=== PATIENT | female | born 1955 | race Caucasian/White ===

== ENCOUNTER 2017-10-23 11:46 | Emergency (ER) | payer MEDICARE ==
[~2017-10-23] VITALS: Ht 152.4 cm; Wt 142.9 kg
[~2017-10-23 11:46] MED LIST: ALBU3IS INH; ALBU90OI61 INH; ALPR.5 PO; AMLO5 PO; ATOR10 PO; ATOR20 PO; Ambien10 MG PO; FLUO10 PO; LEVOXYL PO; LEVSOD100 PO; LEVSOD50 PO; LEVSOD75 PO; Levaquin500 MG PO; NORVASC PO; Norco 5-325 Ta1 EACH PO; OMEP20ER; OMEP20ER PO; PRED10 PO; PROM25 PO; PROZAC PO; Prednisone20 MG PO; VITAMIN D32000 UNIT PO; Vitamin D2000 UNIT PO; ZOLP10 PO; Zofran8 MG PO
[2017-10-23 17:00] LABS: Calcium, Ionized (POC) 1.03 mmol/L (1.10-1.46); Chloride (POC) 103 mmol/L (98-108); Creatinine (POC) 1.1 mg/dL (0.6-1.0); Glucose (ISTAT POC) 85 mg/dL (70-99); Hemoglobin (POC) 13.6 g/dL (12.0-16.0); Potassium (POC) 3.8 mmol/L (3.5-5.5); Sodium (POC) 140 mmol/L (135-148); Total CO2 (POC) 26 mmol/L (21-32)
[2017-10-23] MEDS ORDERED: Percocet 5-3251 EACH PO (17:30)
[2017-10-23] MEDS ORDERED: IBUP600 PO (17:30)
== END 2017-10-23 17:45 | disposition home or self-care (01) ==
LOC: ER 11:46
PROVIDERS: Emergency Medicine
DX: M43.16 Spondylolisthesis, lumbar region (principal); E66.9 Obesity, unspecified; I10 Essential (primary) hypertension; F32.9 Major depressive disorder, single episode, unspecified; Z88.0 Allergy status to penicillin; Z79.899 Other long term (current) drug therapy; Z87.891 Personal history of nicotine dependence; Z68.44 Body mass index [BMI] 60.0-69.9, adult
CPT/HCPCS: 36415; 72100; 80047; 85014; 96372; 99283; J1885

== ENCOUNTER 2017-11-23 12:50 | Inpatient (IN) | payer MEDICARE ==
[~2017-11-23] VITALS: Ht 152.4 cm; Wt 146.9 kg
[~2017-11-23 12:50] MED LIST changes: +IBUP600 PO; +Percocet 5-3251 EACH PO
[2017-11-23] MEDS ORDERED: PANT40 PO (13:14)
[2017-11-23] MEDS ORDERED: Prozac20 MG PO (13:14)
[2017-11-23] MEDS ORDERED: LEVSOD50 PO (13:14)
[2017-11-23 13:53] LABS: BASOPHILS ABSOLUTE AUTO 0.02 K/mm3 (0.00-0.23); BASOPHILS PERCENT AUTO 0 % (0-2); EOSINOPHILS ABSOLUTE AUTO 0.05 K/mm3 (0.00-0.68); EOSINOPHILS PERCENT AUTO 1 % (0-6); Hematocrit 44.5 % (33.0-51.0); Hemoglobin 15.1 g/dL (11.5-16.0); IMMATURE GRAN ABSOLUTE AUTO 0.02 K/mm3 (0.00-0.10); IMMATURE GRAN PERCENT AUTO 0 % (0-1); LYMPHOCYTES ABSOLUTE AUTO 2.88 K/mm3 (0.84-5.20); LYMPHOCYTES PERCENT AUTO 38 % (21-46); MONOCYTES ABSOLUTE AUTO 0.51 K/mm3 (0.16-1.47); MONOCYTES PERCENT AUTO 7 % (4-13); Mean Corpuscular HGB 29.8 pg (26.0-34.0); Mean Corpuscular HGB Conc 33.9 g/dL (31.5-36.5); Mean Corpuscular Volume 88 fL (80-100); Mean Platelet Volume 11.5 fL (9.1-12.4); NEUTROPHILS ABSOLUTE AUTO 4.07 K/mm3 (1.96-9.15); NEUTROPHILS PERCENT AUTO 54 % (41-73); Platelet Count 387 K/mm3 (150-400); RDW Coefficient Variation 13.2 % (11.7-14.2); RDW Standard Deviation 42.4 fL (35.1-46.3); Red Blood Cell Count 5.06 M/mm3 (3.80-5.20); White Blood Cell Count 7.55 K/mm3 (4.00-11.30)
[2017-11-23 14:05] LABS: Alanine Aminotransfer (ALT/SGP 56 U/L (12-78); Albumin, Blood 3.7 g/dL (3.4-5.0); Albumin/Globulin Ratio 0.9 (0.8-1.8); Alk Phos 124 U/L (50-136); Anion Gap 11 mmol/L (6-16); Aspartate Aminotrans (AST/SGOT 48 U/L (12-37); Blood Urea Nitrogen 8 mg/dL (8-24); Bun/Creatinine Ratio 9.7 (12.0-20.0); CO2, Blood 22 mmol/L (21-32); Calcium, Blood 9.2 mg/dL (8.5-10.1); Chloride, Blood 107 mmol/L (98-108); Creatinine, Blood 0.83 mg/dL (0.40-1.00); Globulin, Blood 3.9 g/dL (2.2-4.0); Glomerular Filtration Rate >60 (60-); Glucose, Blood 156 mg/dL (70-99); Potassium, Blood 3.5 mmol/L (3.5-5.5); Sodium, Blood 140 mmol/L (136-145); Total Protein, Blood 7.6 g/dL (6.4-8.2)
[2017-11-23 17:49] LABS: U Amphetamine Screen Not Detected; U Barbituate Screen Not Detected; U Benzodiazapine Screen DETECTED; U Buprenorphine Screen Not Detected; U Cannabinoids Screen Not Detected; U Cocaine Screen Not Detected; U Methadone Screen Not Detected; U Methamphetamine Screen Not Detected; U Opiates Screen DETECTED; U Oxycodone Screen Not Detected; U Phencyclidine Screen Not Detected; U Propoxyphene Screen Not Detected
[2017-11-23 18:48] LABS: Salicylate 1.8 mg/dL (2.8-20.0)
[2017-11-23 19:14] LABS: Acetaminophen, Random <2.0 ug/mL (10.0-30.0)
[2017-11-23 19:21] LABS: Source, Urine Clean Catch
[2017-11-23 19:25] LABS: Appearance, Urine Clear (Clear); Bilirubin, Urine Neg (Neg); Blood, Urine Neg (Neg); Color, Urine Yellow (P-Yellow); Glucose Qualitative, Urine Neg (Neg); Ketones, Urine 2+ (Neg); Leukocyte Esterase, Urine Neg (Neg); Nitrite, Urine Neg (Neg); Protein, Urine Neg (Neg); Urobilinogen, Urine NORM (Normal)
[2017-11-24 03:49] LABS: BASOPHILS ABSOLUTE AUTO 0.02 K/mm3 (0.00-0.23); BASOPHILS PERCENT AUTO 0 % (0-2); EOSINOPHILS ABSOLUTE AUTO 0.03 K/mm3 (0.00-0.68); EOSINOPHILS PERCENT AUTO 1 % (0-6); Hemoglobin 12.5 g/dL (11.5-16.0); IMMATURE GRAN PERCENT AUTO 0 % (0-1); LYMPHOCYTES ABSOLUTE AUTO 2.41 K/mm3 (0.84-5.20); LYMPHOCYTES PERCENT AUTO 44 % (21-46); MONOCYTES ABSOLUTE AUTO 0.46 K/mm3 (0.16-1.47); MONOCYTES PERCENT AUTO 8 % (4-13); Mean Corpuscular HGB 29.9 pg (26.0-34.0); Mean Corpuscular HGB Conc 32.9 g/dL (31.5-36.5); NEUTROPHILS ABSOLUTE AUTO 2.62 K/mm3 (1.96-9.15); NEUTROPHILS PERCENT AUTO 47 % (41-73); Platelet Count 239 K/mm3 (150-400); RDW Coefficient Variation 13.3 % (11.7-14.2); RDW Standard Deviation 44.6 fL (35.1-46.3); Red Blood Cell Count 4.18 M/mm3 (3.80-5.20); White Blood Cell Count 5.54 K/mm3 (4.00-11.30)
[2017-11-24 03:51] LABS: Mean Corpuscular Volume 91 fL (80-100)
[2017-11-24 04:08] LABS: Alanine Aminotransfer (ALT/SGP 44 U/L (12-78); Albumin, Blood 2.8 g/dL (3.4-5.0); Albumin/Globulin Ratio 0.9 (0.8-1.8); Alk Phos 93 U/L (50-136); Anion Gap 5 mmol/L (6-16); Aspartate Aminotrans (AST/SGOT 34 U/L (12-37); Bilirubin, Total 0.9 mg/dL (0.1-1.0); Blood Urea Nitrogen 7 mg/dL (8-24); Bun/Creatinine Ratio 8.1 (12.0-20.0); CO2, Blood 27 mmol/L (21-32); Calcium, Blood 7.9 mg/dL (8.5-10.1); Chloride, Blood 112 mmol/L (98-108); Creatinine, Blood 0.86 mg/dL (0.40-1.00); Glomerular Filtration Rate >60 (60-); Glucose, Blood 83 mg/dL (70-99); Potassium, Blood 3.2 mmol/L (3.5-5.5); Sodium, Blood 144 mmol/L (136-145); Total Protein, Blood 5.8 g/dL (6.4-8.2)
[2017-11-25] MEDS ORDERED: ALPR.25 PO (12:01)
== END 2017-11-25 12:07 | disposition home or self-care (01) | DRG 896 ==
LOC: ER 12:50 → ICUW 17:33 → MEDS 18:00 → ICUW 18:07 → MEDS 11-24 14:45
PROVIDERS: Emergency Medicine; Family Medicine
DX: F13.231 Sedative, hypnotic or anxiolytic dependence with withdrawal delirium (principal); G92 Toxic encephalopathy; F33.9 Major depressive disorder, recurrent, unspecified; Z68.43 Body mass index [BMI] 50.0-59.9, adult; F41.1 Generalized anxiety disorder; E03.9 Hypothyroidism, unspecified; E66.01 Morbid (severe) obesity due to excess calories; I10 Essential (primary) hypertension; G47.33 Obstructive sleep apnea (adult) (pediatric); Z87.891 Personal history of nicotine dependence; Z88.0 Allergy status to penicillin; Z79.899 Other long term (current) drug therapy
CPT/HCPCS: 36415; 70450; 71046; 80053; 81003; 82947; 84436; 84443; 85025; 93005; 93010; 94762; 96361; 96374; 96375; 96376; 97162; 97166; 97530; 97535; 99285; G0480; G8978; G8979; G8987; G8988; J1200; J1650; J2060; J2405; J2765; J7030

== ENCOUNTER 2018-03-01 14:22 | Observation (INO) | payer MEDICARE ==
[~2018-03-01] VITALS: Ht 152.4 cm; Wt 128.2 kg
[~2018-03-01 14:22] MED LIST changes: +ALPR.25 PO; +PANT40 PO; +Prozac20 MG PO
[2018-03-01 15:09] LABS: BASOPHILS ABSOLUTE AUTO 0.03 K/mm3 (0.00-0.23); BASOPHILS PERCENT AUTO 0 % (0-2); EOSINOPHILS ABSOLUTE AUTO 0.05 K/mm3 (0.00-0.68); EOSINOPHILS PERCENT AUTO 1 % (0-6); Hematocrit 43.9 % (33.0-51.0); Hemoglobin 14.5 g/dL (11.5-16.0); IMMATURE GRAN ABSOLUTE AUTO 0.02 K/mm3 (0.00-0.10); IMMATURE GRAN PERCENT AUTO 0 % (0-1); LYMPHOCYTES PERCENT AUTO 31 % (21-46); MONOCYTES ABSOLUTE AUTO 0.62 K/mm3 (0.16-1.47); MONOCYTES PERCENT AUTO 7 % (4-13); Mean Corpuscular HGB 30.3 pg (26.0-34.0); Mean Corpuscular Volume 92 fL (80-100); Mean Platelet Volume 11.2 fL (9.1-12.4); NEUTROPHILS ABSOLUTE AUTO 5.88 K/mm3 (1.96-9.15); NEUTROPHILS PERCENT AUTO 62 % (41-73); Platelet Count 290 K/mm3 (150-400); RDW Coefficient Variation 13.4 % (11.7-14.2); RDW Standard Deviation 45.8 fL (35.1-46.3); Red Blood Cell Count 4.79 M/mm3 (3.80-5.20)
[2018-03-01 15:40] LABS: Alanine Aminotransfer (ALT/SGP 56 U/L (12-78); Albumin, Blood 3.6 g/dL (3.4-5.0); Alk Phos 103 U/L (50-136); Anion Gap 11 mmol/L (6-16); Aspartate Aminotrans (AST/SGOT 87 U/L (12-37); Bilirubin, Total 0.9 mg/dL (0.1-1.0); Blood Urea Nitrogen 9 mg/dL (8-24); Bun/Creatinine Ratio 10.7 (12.0-20.0); CO2, Blood 25 mmol/L (21-32); Calcium, Blood 9.1 mg/dL (8.5-10.1); Chloride, Blood 106 mmol/L (98-108); Creatinine, Blood 0.84 mg/dL (0.40-1.00); Globulin, Blood 3.7 g/dL (2.2-4.0); Glomerular Filtration Rate >60 (60-); Glucose, Blood 92 mg/dL (70-99); Sodium, Blood 142 mmol/L (136-145); Total Protein, Blood 7.3 g/dL (6.4-8.2); Troponin I <0.015 ng/mL (0.000-0.040)
[2018-03-01] MEDS ORDERED: PRAZ1 PO (18:24)
[2018-03-01] MEDS ORDERED: ALPR.5 PO (18:24)
[2018-03-01 19:12] LABS: Free Thyroxine 1.63 ng/dL (0.70-1.60)
[2018-03-01 19:14] LABS: Thyroid Stimulating Hormone 2.76 uIU/mL (0.360-4.800)
[2018-03-02 05:50] LABS: Alanine Aminotransfer (ALT/SGP 46 U/L (12-78); Albumin, Blood 2.8 g/dL (3.4-5.0); Albumin/Globulin Ratio 0.9 (0.8-1.8); Alk Phos 80 U/L (50-136); Anion Gap 9 mmol/L (6-16); Aspartate Aminotrans (AST/SGOT 68 U/L (12-37); Bilirubin, Total 0.8 mg/dL (0.1-1.0); Blood Urea Nitrogen 9 mg/dL (8-24); Bun/Creatinine Ratio 11.4 (12.0-20.0); CO2, Blood 24 mmol/L (21-32); Calcium, Blood 8.2 mg/dL (8.5-10.1); Chloride, Blood 108 mmol/L (98-108); Creatinine, Blood 0.79 mg/dL (0.40-1.00); Globulin, Blood 3.1 g/dL (2.2-4.0); Glomerular Filtration Rate >60 (60-); Glucose, Blood 80 mg/dL (70-99); Potassium, Blood 4.1 mmol/L (3.5-5.5); Sodium, Blood 141 mmol/L (136-145); Total Protein, Blood 5.9 g/dL (6.4-8.2)
[2018-03-02 08:47] LABS: Source, Urine Clean Catch
[2018-03-02 08:54] LABS: Bilirubin, Urine Neg (Neg); Blood, Urine Neg (Neg); Glucose Qualitative, Urine Neg (Neg); Ketones, Urine 1+ (Neg); Leukocyte Esterase, Urine 1+ (Neg); Nitrite, Urine Neg (Neg); Protein, Urine Neg (Neg); Specific Gravity, Urine 1.015 (1.003-1.022); Urobilinogen, Urine NORM (Normal)
[2018-03-02 09:00] LABS: Appearance, Urine Clear (Clear); Color, Urine Amber (P-Yellow)
[2018-03-02 09:01] LABS: Bacteria Rare /hpf; Mucus Mod (0-Heavy); Red Blood Cells, Urine 0-2 /hpf (0-2); Squamous Epithelial Cells Few /hpf (Few)
[2018-03-03 05:23] LABS: BASOPHILS ABSOLUTE AUTO 0.02 K/mm3 (0.00-0.23); BASOPHILS PERCENT AUTO 0 % (0-2); EOSINOPHILS ABSOLUTE AUTO 0.06 K/mm3 (0.00-0.68); EOSINOPHILS PERCENT AUTO 1 % (0-6); Hematocrit 39.9 % (33.0-51.0); Hemoglobin 12.9 g/dL (11.5-16.0); IMMATURE GRAN PERCENT AUTO 0 % (0-1); LYMPHOCYTES ABSOLUTE AUTO 1.83 K/mm3 (0.84-5.20); LYMPHOCYTES PERCENT AUTO 35 % (21-46); MONOCYTES ABSOLUTE AUTO 0.42 K/mm3 (0.16-1.47); MONOCYTES PERCENT AUTO 8 % (4-13); Mean Corpuscular HGB 29.9 pg (26.0-34.0); Mean Corpuscular HGB Conc 32.3 g/dL (31.5-36.5); Mean Corpuscular Volume 93 fL (80-100); Mean Platelet Volume 11.6 fL (9.1-12.4); NEUTROPHILS ABSOLUTE AUTO 2.88 K/mm3 (1.96-9.15); NEUTROPHILS PERCENT AUTO 55 % (41-73); Platelet Count 213 K/mm3 (150-400); RDW Coefficient Variation 13.4 % (11.7-14.2); RDW Standard Deviation 45.9 fL (35.1-46.3); Red Blood Cell Count 4.31 M/mm3 (3.80-5.20); White Blood Cell Count 5.21 K/mm3 (4.00-11.30)
[2018-03-03 05:43] LABS: Anion Gap 7 mmol/L (6-16); Blood Urea Nitrogen 7 mg/dL (8-24); Bun/Creatinine Ratio 8.4 (12.0-20.0); CO2, Blood 26 mmol/L (21-32); Calcium, Blood 8.4 mg/dL (8.5-10.1); Chloride, Blood 109 mmol/L (98-108); Creatinine, Blood 0.83 mg/dL (0.40-1.00); Glomerular Filtration Rate >60 (60-); Glucose, Blood 89 mg/dL (70-99); Magnesium, Blood 1.8 mg/dL (1.6-2.4); Sodium, Blood 142 mmol/L (136-145)
== END 2018-03-03 16:10 | disposition home or self-care (01) ==
LOC: ER 14:22 → MEDS 14:23
PROVIDERS: Emergency Medicine; Internal Medicine; Nurse Practitioner Acute Care
DX: G93.40 Encephalopathy, unspecified (principal); F41.9 Anxiety disorder, unspecified; F32.9 Major depressive disorder, single episode, unspecified; M19.90 Unspecified osteoarthritis, unspecified site; E66.9 Obesity, unspecified; I10 Essential (primary) hypertension; E78.00 Pure hypercholesterolemia, unspecified; E03.9 Hypothyroidism, unspecified; E66.01 Morbid (severe) obesity due to excess calories; G47.33 Obstructive sleep apnea (adult) (pediatric); Z79.899 Other long term (current) drug therapy; Z88.0 Allergy status to penicillin; Z99.89 Dependence on other enabling machines and devices; Z79.01 Long term (current) use of anticoagulants; Z87.891 Personal history of nicotine dependence; Z68.43 Body mass index [BMI] 50.0-59.9, adult
CPT/HCPCS: 36415; 71046; 80048; 80053; 81001; 82550; 83735; 84439; 84443; 84484; 85025; 87086; 93005; 93010; 94660; 94762; 96372; 96374; 97116; 97162; 97166; 97530; 99285-25; G0378; G8978; G8979; G8987; G8988; J1650; J2405; J3480

== ENCOUNTER 2020-09-19 08:35 | Day surgery (SDC) | payer MEDICARE ==
[~2020-09-19 08:35] MED LIST changes: +PRAZ1 PO
--- NOTE | 2020-09-19 09:43 | NUR ---
PT ADMITTED TO [facility] FOR IVIG INFUSION. WE RECEIVED TWO DIFFERENT ORDER SETS. AFTER A FEW ATTEMPTS, I WAS ABLE TO SPEAK WITH DR. GRANT'S MA TO GET ORDERS CLARIFIED. PT TO RECEIVE LOADING DOSE OF 5 CONSECUTIVE DAYS. PT CANCELLED FOR TODAY AND TO COME BACK NEXT WEEK, THURSDAY-THURSDAY FOR INITAIL LOADING DOSE. PT VERY UNDERSTANDING OF CHANGE.
[2020-09-19] MEDS ORDERED: ASPI325 PO (09:54)
[2020-09-19] MEDS ORDERED: ATOR20 PO (09:55)
[2020-09-19] MEDS ORDERED: DULO60 PO (09:55)
[2020-09-19] MEDS ORDERED: PYRI60 PO (09:56)
[2020-09-19] MEDS ORDERED: MULTI-VITAMIN1 EAC2 PO (09:56)
[2020-09-19] MEDS ORDERED: NAPR220 PO (09:56)
== END 2020-09-19 22:38 | disposition home or self-care (01) ==
LOC: ATC 08:35
DX: G70.00 Myasthenia gravis without (acute) exacerbation (principal); Z53.8 Procedure and treatment not carried out for other reasons

== ENCOUNTER 2020-09-24 01:01 | Day surgery (SDC) | payer MEDICARE ==
[~2020-09-24 01:01] MED LIST changes: +ASPI325 PO; +DULO60 PO; +MULTI-VITAMIN1 EAC2 PO; +NAPR220 PO; +PYRI60 PO
--- NOTE | 2020-09-24 08:39 | NUR ---
PT TO OITS. PT TEARFULL TODAY. STATES SHE SUFFERS FROM DEPRESSION AND HAVING A HARD DAY. DID NOT GIVE BENADRYL THIS AM, PT STATES SHE TOOK 50MG THIS AM.
[2020-09-24 08:54] LABS: Hematocrit 46.4 % (33.0-51.0); Hemoglobin 15.2 g/dL (11.5-16.0); Mean Corpuscular HGB 29.8 pg (26.0-34.0); Mean Corpuscular HGB Conc 32.8 g/dL (31.5-36.5); Mean Corpuscular Volume 91 fL (80-100); Mean Platelet Volume 10.5 fL (9.1-12.4); Platelet Count 364 K/mm3 (150-400); RDW Coefficient Variation 11.9 % (11.7-14.2); White Blood Cell Count 7.11 K/mm3 (4.00-11.30)
[2020-09-24 09:10] LABS: Creatinine, Blood 0.94 mg/dL (0.40-1.00)
[2020-09-24 09:16] LABS: BASOPHILS PERCENT MAN 0 % (0-2); EOSINOPHILS ABSOLUTE MAN 0.07 K/mm3 (0.00-0.68); EOSINOPHILS PERCENT MAN 1 % (0-6); LYMPHOCYTES PERCENT MAN 31 % (21-46); MONOCYTES ABSOLUTE MAN 0.42 K/mm3 (0.16-1.47); MONOCYTES PERCENT MAN 6 % (4-13); SEG NEUTROPHILS PERCENT MAN 62 % (41-73); TOTAL CELLS COUNTED 100
== END 2020-09-24 11:59 | disposition home or self-care (01) ==
LOC: ATC 01:01
PROVIDERS: Student in an Organized Health Care Education/Training Program
DX: G70.00 Myasthenia gravis without (acute) exacerbation (principal); E78.5 Hyperlipidemia, unspecified; G47.33 Obstructive sleep apnea (adult) (pediatric); E66.9 Obesity, unspecified; G62.9 Polyneuropathy, unspecified; Z87.891 Personal history of nicotine dependence
CPT/HCPCS: 82565; 82784; 84520; 85007; 85027; 86880; 96365; 96366; A9270; J1100; J1568

== ENCOUNTER 2020-09-25 00:08 | Day surgery (SDC) | payer MEDICARE ==
--- NOTE | 2020-09-25 08:04 | NUR ---
PT TO OTIS. PT C/O H/A, NAUSEA, VOMITING YESTERDAY AND DRY HEAVES TODAY, BODY ACHES, AND TEMP 99.1. SHE STATES THAT THESES ARE NORMAL REACTIONS TO HER TREATMENT BUT MORE SEVER THAN NORMAL. SHE STATES SHE CALLED THE OFFICE TWICE YESTERDAY BUT NEVER GOT A RETURN CALL. THIS RN ATTEMPTED TO CALL THIS AM BUT OFFICE WAS NOT OPEN YET. WILL CALL AGAIN WHEN OPEN.
--- NOTE | 2020-09-25 08:19 | NUR ---
ATTMEPTED TO CALL OFFICE AND WAS ONLY ABLE TO LEAVE MESSAGE. AWAITING FOR CALL BACK BEFORE STARTING TODAYS DOSE. SPOKE WITH OUR PHARMACIST AND AGREES TO SPEAK WITH PHYSICAIN PRIOR TO STARTING. PT INFORMED OF THIS AND AGREES WITH PLAN.
--- NOTE | 2020-09-25 14:10 | NUR ---
PT TOLERATED INFUSION WELL. STATES SHE IS FEELING MUCH BETTER THAN SHE DID, WHEN SHE ARRIVED THIS AM.
== END 2020-09-25 14:20 | disposition home or self-care (01) ==
LOC: ATC 00:08
DX: G70.00 Myasthenia gravis without (acute) exacerbation (principal); G62.9 Polyneuropathy, unspecified; E78.5 Hyperlipidemia, unspecified; G47.33 Obstructive sleep apnea (adult) (pediatric); E03.9 Hypothyroidism, unspecified; E66.9 Obesity, unspecified
CPT/HCPCS: 96365; 96366; 96375; A9270; J1100; J1568; J7040

== ENCOUNTER 2020-09-26 00:01 | Day surgery (SDC) | payer MEDICARE ==
[~2020-09-26] VITALS: Ht 152.4 cm; Wt 141.0 kg
== END 2020-09-26 11:43 | disposition home or self-care (01) ==
LOC: ATC 00:01
DX: G70.00 Myasthenia gravis without (acute) exacerbation (principal); G62.9 Polyneuropathy, unspecified; E78.5 Hyperlipidemia, unspecified; G47.33 Obstructive sleep apnea (adult) (pediatric); E03.9 Hypothyroidism, unspecified; E66.9 Obesity, unspecified; F33.2 Major depressive disorder, recurrent severe without psychotic features; Z87.891 Personal history of nicotine dependence; Z68.43 Body mass index [BMI] 50.0-59.9, adult
CPT/HCPCS: 96365; 96366; 96375; J1100; J1568

== ENCOUNTER 2020-09-28 00:32 | Day surgery (SDC) | payer MEDICARE | END 2020-09-28 23:05 | disposition home or self-care (01) | LOC: ATC 00:32 | DX: G70.00 Myasthenia gravis without (acute) exacerbation (principal); M79.2 Neuralgia and neuritis, unspecified; F33.2 Major depressive disorder, recurrent severe without psychotic features; E78.5 Hyperlipidemia, unspecified; G47.33 Obstructive sleep apnea (adult) (pediatric); E03.9 Hypothyroidism, unspecified ==

== ENCOUNTER 2020-11-26 00:37 | Day surgery (SDC) | payer MEDICARE ==
[~2020-11-26] VITALS: Wt 140.9 kg
[2020-11-26 09:03] LABS: BASOPHILS ABSOLUTE AUTO 0.02 K/mm3 (0.00-0.23); BASOPHILS PERCENT AUTO 0 % (0-2); EOSINOPHILS ABSOLUTE AUTO 0.05 K/mm3 (0.00-0.68); EOSINOPHILS PERCENT AUTO 1 % (0-6); Hematocrit 44.1 % (33.0-51.0); Hemoglobin 14.3 g/dL (11.5-16.0); IMMATURE GRAN ABSOLUTE AUTO 0.03 K/mm3 (0.00-0.10); IMMATURE GRAN PERCENT AUTO 1 % (0-1); LYMPHOCYTES ABSOLUTE AUTO 2.08 K/mm3 (0.84-5.20); LYMPHOCYTES PERCENT AUTO 32 % (21-46); MONOCYTES ABSOLUTE AUTO 0.53 K/mm3 (0.16-1.47); MONOCYTES PERCENT AUTO 8 % (4-13); Mean Corpuscular HGB 29.9 pg (26.0-34.0); Mean Corpuscular HGB Conc 32.4 g/dL (31.5-36.5); Mean Corpuscular Volume 92 fL (80-100); Mean Platelet Volume 10.6 fL (9.1-12.4); NEUTROPHILS ABSOLUTE AUTO 3.86 K/mm3 (1.96-9.15); NEUTROPHILS PERCENT AUTO 59 % (41-73); Platelet Count 377 K/mm3 (150-400); RDW Coefficient Variation 12.5 % (11.7-14.2); RDW Standard Deviation 42.5 fL (35.1-46.3); Red Blood Cell Count 4.79 M/mm3 (3.80-5.20); White Blood Cell Count 6.57 K/mm3 (4.00-11.30)
[2020-11-26 09:21] LABS: Creatinine, Blood 0.9 mg/dL (0.40-1.00)
== END 2020-11-26 10:58 | disposition home or self-care (01) ==
LOC: ATC 00:37
PROVIDERS: Student in an Organized Health Care Education/Training Program
DX: G70.00 Myasthenia gravis without (acute) exacerbation (principal); M79.2 Neuralgia and neuritis, unspecified; F33.2 Major depressive disorder, recurrent severe without psychotic features; G47.33 Obstructive sleep apnea (adult) (pediatric); E78.5 Hyperlipidemia, unspecified; E03.9 Hypothyroidism, unspecified; Z87.891 Personal history of nicotine dependence
CPT/HCPCS: 82565; 82784; 84520; 85025; 96365; 96366; 96375; A9270; J1100; J1568

== ENCOUNTER 2020-11-27 00:38 | Day surgery (SDC) | payer MEDICARE | END 2020-11-27 15:57 | disposition home or self-care (01) | LOC: ATC 00:38 | DX: G70.00 Myasthenia gravis without (acute) exacerbation (principal); M79.2 Neuralgia and neuritis, unspecified; F33.2 Major depressive disorder, recurrent severe without psychotic features; E78.5 Hyperlipidemia, unspecified; E03.9 Hypothyroidism, unspecified; G47.30 Sleep apnea, unspecified; Z87.891 Personal history of nicotine dependence; Z79.82 Long term (current) use of aspirin; Z79.899 Other long term (current) drug therapy | CPT/HCPCS: 96365; 96366; A9270; J1100; J1568 ==

== ENCOUNTER 2020-12-24 00:23 | Day surgery (SDC) | payer MEDICARE ==
[~2020-12-24] VITALS: Ht 152.4 cm; Wt 139.8 kg
[2020-12-24 14:10] LABS: BASOPHILS ABSOLUTE AUTO 0.03 K/mm3 (0.00-0.23); BASOPHILS PERCENT AUTO 0 % (0-2); EOSINOPHILS ABSOLUTE AUTO 0.03 K/mm3 (0.00-0.68); EOSINOPHILS PERCENT AUTO 0 % (0-6); Hematocrit 43.1 % (33.0-51.0); Hemoglobin 14.3 g/dL (11.5-16.0); IMMATURE GRAN ABSOLUTE AUTO 0.01 K/mm3 (0.00-0.10); IMMATURE GRAN PERCENT AUTO 0 % (0-1); LYMPHOCYTES ABSOLUTE AUTO 1.95 K/mm3 (0.84-5.20); LYMPHOCYTES PERCENT AUTO 27 % (21-46); MONOCYTES PERCENT AUTO 8 % (4-13); Mean Corpuscular HGB 30.1 pg (26.0-34.0); Mean Corpuscular HGB Conc 33.2 g/dL (31.5-36.5); Mean Corpuscular Volume 91 fL (80-100); Mean Platelet Volume 10.5 fL (9.1-12.4); NEUTROPHILS ABSOLUTE AUTO 4.69 K/mm3 (1.96-9.15); NEUTROPHILS PERCENT AUTO 64 % (41-73); Platelet Count 326 K/mm3 (150-400); RDW Coefficient Variation 12.2 % (11.7-14.2); RDW Standard Deviation 40.8 fL (35.1-46.3); Red Blood Cell Count 4.75 M/mm3 (3.80-5.20); White Blood Cell Count 7.31 K/mm3 (4.00-11.30)
--- NOTE | 2020-12-24 14:40 | NUR ---
LABS DRAWN FROM RIGHT AC USING 23G BUTTERFLY NEEDLE PER HOSPITAL PROTOCOL
--- NOTE | 2020-12-24 16:20 | NUR ---
IV PADDED WITH 2X2S AMD WRAPPED WITH COBAN AND BANDNET. PT TO RETURN TOMORROW FOR ANOTHER DOSE OF IVIG.
== END 2020-12-24 16:11 | disposition home or self-care (01) ==
LOC: ATC 00:23
PROVIDERS: Student in an Organized Health Care Education/Training Program
DX: G70.00 Myasthenia gravis without (acute) exacerbation (principal); E03.9 Hypothyroidism, unspecified; E78.5 Hyperlipidemia, unspecified; F33.2 Major depressive disorder, recurrent severe without psychotic features; Z87.891 Personal history of nicotine dependence
CPT/HCPCS: 82784; 84520; 85025; 96365; 96366; A9270; J1100; J1568

== ENCOUNTER 2020-12-25 02:28 | Day surgery (SDC) | payer MEDICARE | END 2020-12-25 15:35 | disposition home or self-care (01) | LOC: ATC 02:28 | DX: G70.00 Myasthenia gravis without (acute) exacerbation (principal); G62.9 Polyneuropathy, unspecified; F33.2 Major depressive disorder, recurrent severe without psychotic features; E78.5 Hyperlipidemia, unspecified; G47.33 Obstructive sleep apnea (adult) (pediatric); E03.9 Hypothyroidism, unspecified | CPT/HCPCS: 96365; 96366; 96375; A9270; J1100; J1568 ==

== ENCOUNTER 2021-01-17 00:13 | Day surgery (SDC) | payer MEDICARE | END 2021-01-17 23:10 | disposition home or self-care (01) | LOC: ATC 00:13 | DX: G70.00 Myasthenia gravis without (acute) exacerbation (principal); G62.9 Polyneuropathy, unspecified; E78.5 Hyperlipidemia, unspecified; G47.33 Obstructive sleep apnea (adult) (pediatric); E66.9 Obesity, unspecified; Z99.89 Dependence on other enabling machines and devices; Z79.82 Long term (current) use of aspirin; Z87.891 Personal history of nicotine dependence | CPT/HCPCS: J1568; J7040 ==

== ENCOUNTER 2021-01-31 00:52 | Day surgery (SDC) | payer MEDICARE ==
[2021-01-31 13:53] LABS: BASOPHILS ABSOLUTE AUTO 0.03 K/mm3 (0.00-0.23); BASOPHILS PERCENT AUTO 0 % (0-2); EOSINOPHILS ABSOLUTE AUTO 0.07 K/mm3 (0.00-0.68); EOSINOPHILS PERCENT AUTO 1 % (0-6); Hematocrit 44.3 % (33.0-51.0); Hemoglobin 14.5 g/dL (11.5-16.0); IMMATURE GRAN ABSOLUTE AUTO 0.03 K/mm3 (0.00-0.10); IMMATURE GRAN PERCENT AUTO 0 % (0-1); LYMPHOCYTES ABSOLUTE AUTO 2.92 K/mm3 (0.84-5.20); LYMPHOCYTES PERCENT AUTO 36 % (21-46); MONOCYTES ABSOLUTE AUTO 0.73 K/mm3 (0.16-1.47); MONOCYTES PERCENT AUTO 9 % (4-13); Mean Corpuscular HGB 29.4 pg (26.0-34.0); Mean Corpuscular HGB Conc 32.7 g/dL (31.5-36.5); Mean Corpuscular Volume 90 fL (80-100); Mean Platelet Volume 10.8 fL (9.1-12.4); NEUTROPHILS ABSOLUTE AUTO 4.38 K/mm3 (1.96-9.15); NEUTROPHILS PERCENT AUTO 54 % (41-73); Platelet Count 332 K/mm3 (150-400); RDW Coefficient Variation 13.2 % (11.7-14.2); RDW Standard Deviation 42.9 fL (35.1-46.3); Red Blood Cell Count 4.93 M/mm3 (3.80-5.20); White Blood Cell Count 8.16 K/mm3 (4.00-11.30)
[2021-01-31 14:45] LABS: Creatinine, Blood 0.96 mg/dL (0.40-1.00)
--- NOTE | 2021-01-31 15:52 | NUR ---
DOSING: ORDER STATES TO BASE DOSE ON ACTUAL BODY WEIGHT, BUT, PER KARINE IN PHARMACY, DUE TO IVIG SHORTAGE THIS PHARMACY WILL ONLY DOSE PER IDEAL BODY WEIGHT. THIS RN SPOKE TO MIKE AT [facility] AND GAVE HER THIS INFORMATION, SHE STATES SHE WILL GIVE THIS INFO TO DR GRANT.
== END 2021-01-31 15:30 | disposition home or self-care (01) ==
LOC: ATC 00:52
PROVIDERS: Student in an Organized Health Care Education/Training Program
DX: G70.00 Myasthenia gravis without (acute) exacerbation (principal); G47.33 Obstructive sleep apnea (adult) (pediatric); E78.5 Hyperlipidemia, unspecified; E03.9 Hypothyroidism, unspecified; F33.2 Major depressive disorder, recurrent severe without psychotic features; Z87.891 Personal history of nicotine dependence
CPT/HCPCS: 82565; 82784; 84520; 85025; 96365; 96375; A9270; J1100; J1568

== ENCOUNTER 2021-02-01 01:07 | Day surgery (SDC) | payer MEDICARE | END 2021-02-01 15:34 | disposition home or self-care (01) | LOC: ATC 01:07 | DX: G70.00 Myasthenia gravis without (acute) exacerbation (principal); E78.5 Hyperlipidemia, unspecified; E03.9 Hypothyroidism, unspecified; G62.9 Polyneuropathy, unspecified; F33.2 Major depressive disorder, recurrent severe without psychotic features; E66.9 Obesity, unspecified; Z87.891 Personal history of nicotine dependence; Z68.43 Body mass index [BMI] 50.0-59.9, adult | CPT/HCPCS: A9270; J1100; J1568 ==

== ENCOUNTER 2021-02-19 04:10 | Day surgery (SDC) | payer MEDICARE ==
[~2021-02-19] VITALS: Ht 152.4 cm; Wt 139.3 kg
[2021-02-19 08:49] LABS: BASOPHILS ABSOLUTE AUTO 0.03 K/mm3 (0.00-0.23); BASOPHILS PERCENT AUTO 1 % (0-2); EOSINOPHILS ABSOLUTE AUTO 0.06 K/mm3 (0.00-0.68); EOSINOPHILS PERCENT AUTO 1 % (0-6); Hemoglobin 14.1 g/dL (11.5-16.0); IMMATURE GRAN ABSOLUTE AUTO 0.01 K/mm3 (0.00-0.10); IMMATURE GRAN PERCENT AUTO 0 % (0-1); LYMPHOCYTES ABSOLUTE AUTO 1.65 K/mm3 (0.84-5.20); LYMPHOCYTES PERCENT AUTO 36 % (21-46); MONOCYTES ABSOLUTE AUTO 0.36 K/mm3 (0.16-1.47); MONOCYTES PERCENT AUTO 8 % (4-13); Mean Corpuscular HGB 29.8 pg (26.0-34.0); Mean Corpuscular HGB Conc 32.8 g/dL (31.5-36.5); Mean Corpuscular Volume 91 fL (80-100); Mean Platelet Volume 11.3 fL (9.1-12.4); NEUTROPHILS ABSOLUTE AUTO 2.42 K/mm3 (1.96-9.15); NEUTROPHILS PERCENT AUTO 54 % (41-73); Platelet Count 261 K/mm3 (150-400); RDW Coefficient Variation 13.6 % (11.7-14.2); RDW Standard Deviation 46.1 fL (35.1-46.3); Red Blood Cell Count 4.73 M/mm3 (3.80-5.20); White Blood Cell Count 4.53 K/mm3 (4.00-11.30)
[2021-02-19 09:12] LABS: Creatinine, Blood 0.87 mg/dL (0.40-1.00)
[2021-02-19] MEDS ORDERED: GAMMAGARD S-D 110 GM IV (09:16)
== END 2021-02-19 10:05 | disposition home or self-care (01) ==
LOC: ATC 04:10
PROVIDERS: Student in an Organized Health Care Education/Training Program
DX: G70.00 Myasthenia gravis without (acute) exacerbation (principal); G47.33 Obstructive sleep apnea (adult) (pediatric)
CPT/HCPCS: 82565; 82784; 84520; 85025; 96365; A9270; J1100; J1200; J1568

== ENCOUNTER 2021-02-21 02:15 | Day surgery (SDC) | payer MEDICARE ==
[~2021-02-21 02:15] MED LIST changes: +GAMMAGARD S-D 110 GM IV
== END 2021-02-21 10:08 | disposition home or self-care (01) ==
LOC: ATC 02:15
DX: G70.00 Myasthenia gravis without (acute) exacerbation (principal); Z87.891 Personal history of nicotine dependence
CPT/HCPCS: 96365; A9270; J1100; J1568

== ENCOUNTER 2021-10-08 14:02 | Emergency (ER) | payer MEDICARE ==
[~2021-10-08] VITALS: Ht 152.4 cm; Wt 131.1 kg
[2021-10-08 14:47] LABS: Hematocrit 46.7 % (33.0-51.0)
[2021-10-08 14:57] LABS: BASOPHILS ABSOLUTE AUTO 0.02 K/mm3 (0.00-0.23); BASOPHILS PERCENT AUTO 0 % (0-2); EOSINOPHILS ABSOLUTE AUTO 0.04 K/mm3 (0.00-0.68); EOSINOPHILS PERCENT AUTO 1 % (0-6); Hemoglobin 15.5 g/dL (11.5-16.0); IMMATURE GRAN ABSOLUTE AUTO 0.04 K/mm3 (0.00-0.10); IMMATURE GRAN PERCENT AUTO 1 % (0-1); LYMPHOCYTES ABSOLUTE AUTO 1.15 K/mm3 (0.84-5.20); LYMPHOCYTES PERCENT AUTO 14 % (21-46); MONOCYTES ABSOLUTE AUTO 0.53 K/mm3 (0.16-1.47); MONOCYTES PERCENT AUTO 6 % (4-13); Mean Corpuscular HGB 29.5 pg (26.0-34.0); Mean Corpuscular HGB Conc 33.2 g/dL (31.5-36.5); Mean Corpuscular Volume 89 fL (80-100); NEUTROPHILS ABSOLUTE AUTO 6.51 K/mm3 (1.96-9.15); NEUTROPHILS PERCENT AUTO 79 % (41-73); RDW Coefficient Variation 12.5 % (11.7-14.2); RDW Standard Deviation 40.7 fL (35.1-46.3); Red Blood Cell Count 5.25 M/mm3 (3.80-5.20); White Blood Cell Count 8.29 K/mm3 (4.00-11.30)
[2021-10-08 14:58] LABS: Mean Platelet Volume 10.6 fL (9.1-12.4)
[2021-10-08 15:12] LABS: Alanine Aminotransfer (ALT/SGP 26 U/L (12-78); Albumin, Blood 3.5 g/dL (3.4-5.0); Albumin/Globulin Ratio 0.6 (0.8-1.8); Alk Phos 102 U/L (50-136); Anion Gap 6 mmol/L (6-16); Aspartate Aminotrans (AST/SGOT 23 U/L (12-37); Bilirubin, Total 0.9 mg/dL (0.1-1.0); Blood Urea Nitrogen 13 mg/dL (8-24); Bun/Creatinine Ratio 14.7 (12.0-20.0); CO2, Blood 20 mmol/L (21-32); Chloride, Blood 107 mmol/L (98-108); Creatinine, Blood 0.88 mg/dL (0.40-1.00); Globulin, Blood 5.6 g/dL (2.2-4.0); Glomerular Filtration Rate >60 (60-); Glucose, Blood 117 mg/dL (70-99); Potassium, Blood 4.1 mmol/L (3.5-5.5); Sodium, Blood 133 mmol/L (136-145); Total Protein, Blood 9.1 g/dL (6.4-8.2)
[2021-10-08 15:17] LABS: Platelet Count 193 K/mm3 (150-400)
[2021-10-08] MEDS ORDERED: Norco 5-325 Ta1 EACH PO (17:35)
== END 2021-10-08 18:28 | disposition home or self-care (01) ==
LOC: ER 14:02
PROVIDERS: Physician Assistant
DX: M79.10 Myalgia, unspecified site (principal); T50.Z15A Adverse effect of immunoglobulin, initial encounter; I10 Essential (primary) hypertension; Z79.899 Other long term (current) drug therapy; Z88.0 Allergy status to penicillin
CPT/HCPCS: 80053; 85025; 86850; 86880; 86900; 86901; 96374; 96375; 99283-25; A9270; J1885; J3010

== ENCOUNTER 2021-10-23 01:23 | Day surgery (SDC) | payer MEDICARE | END 2021-10-23 12:00 | disposition home or self-care (01) | LOC: ATC 01:23 | DX: G70.00 Myasthenia gravis without (acute) exacerbation (principal) | CPT/HCPCS: 96365; 96366; A9270; J1568 ==

== ENCOUNTER 2022-03-02 13:02 | Emergency (ER) | payer MEDICARE ==
[~2022-03-02] VITALS: Ht 152.4 cm; Wt 121.6 kg
[2022-03-02 14:40] LABS: Source, Urine Clean Catch
[2022-03-02 14:44] LABS: Appearance, Urine Hazy (Clear); Bilirubin, Urine Neg (Neg); Blood, Urine 1+ (Neg); Color, Urine Yellow (P-Yellow); Glucose Qualitative, Urine Neg (Neg); Ketones, Urine Neg (Neg); Leukocyte Esterase, Urine 3+ (Neg); Nitrite, Urine Neg (Neg); Protein, Urine 1+ (Neg); Urobilinogen, Urine NORM (Normal)
[2022-03-02] MEDS ORDERED: ONDA4ODT MM (15:10)
[2022-03-02] MEDS ORDERED: CODEINE-GUAIFE120 M1 PO (15:10)
[2022-03-02 15:14] LABS: Amorphous Light (0-Heavy); Bacteria Mod /hpf; Mucus Light (0-Heavy); Red Blood Cells, Urine 0-2 /hpf (0-2); Squamous Epithelial Cells Few /hpf (Few); White Blood Cells, Urine 0-2 /hpf (0-5)
== END 2022-03-02 15:53 | disposition home or self-care (01) ==
LOC: ER 13:02
PROVIDERS: Physician Assistant
DX: U07.1 COVID-19 (principal); I10 Essential (primary) hypertension; Z88.0 Allergy status to penicillin; Z79.82 Long term (current) use of aspirin; Z79.899 Other long term (current) drug therapy; Z87.891 Personal history of nicotine dependence
CPT/HCPCS: 36415; 81001; A9270; J2405

== ENCOUNTER → 2022-03-26 | Outpatient (CLI) | payer MEDICARE ==
[~2022-03-26] MED LIST changes: +CODEINE-GUAIFE120 M1 PO; +ONDA4ODT MM
== END | disposition home or self-care (01) ==
LOC: LAB 14:14 → LAB SHORT 14:14
DX: R05.9 Cough, unspecified (principal)
CPT/HCPCS: 87070; 87205

== ENCOUNTER 2024-04-23 14:02 | Emergency (ER) | payer MEDICARE ==
[~2024-04-23] VITALS: Ht 152.4 cm; Wt 136.1 kg
[2024-04-23] MEDS ORDERED: Ipratropium Bromide INH 0.02% 0.5 mg/2.5ML Vial INH SCH (14:15)
[2024-04-23] MEDS ORDERED: Albuterol 2.5 MG/3 ML VIAL INH SCH (14:15)
[2024-04-23 14:44] LABS: BASOPHILS ABSOLUTE AUTO 0.03 K/mm3 (0.00-0.23); BASOPHILS PERCENT AUTO 0 % (0-2); EOSINOPHILS ABSOLUTE AUTO 0.13 K/mm3 (0.00-0.68); EOSINOPHILS PERCENT AUTO 1 % (0-6); Hematocrit 44.9 % (33.0-51.0); Hemoglobin 14.3 g/dL (11.5-16.0); IMMATURE GRAN ABSOLUTE AUTO 0.05 K/mm3 (0.00-0.10); IMMATURE GRAN PERCENT AUTO 0 % (0-1); LYMPHOCYTES ABSOLUTE AUTO 0.94 K/mm3 (0.84-5.20); LYMPHOCYTES PERCENT AUTO 6 % (21-46); MONOCYTES ABSOLUTE AUTO 0.82 K/mm3 (0.16-1.47); MONOCYTES PERCENT AUTO 5 % (4-13); Mean Corpuscular HGB 29.4 pg (26.0-34.0); Mean Corpuscular HGB Conc 31.8 g/dL (31.5-36.5); Mean Corpuscular Volume 92 fL (80-100); Mean Platelet Volume 10.4 fL (9.1-12.4); NEUTROPHILS ABSOLUTE AUTO 13.55 K/mm3 (1.96-9.15); NEUTROPHILS PERCENT AUTO 87 % (41-73); Platelet Count 267 K/mm3 (150-400); RDW Standard Deviation 43.8 fL (35.1-46.3); Red Blood Cell Count 4.87 M/mm3 (3.80-5.20); White Blood Cell Count 15.52 K/mm3 (4.00-11.30)
[2024-04-23 15:00] LABS: Albumin, Blood 3.9 g/dL (3.4-5.0); Albumin/Globulin Ratio 1.2 (0.8-1.8); Bilirubin, Total 1.1 mg/dL (0.1-1.0); Bun/Creatinine Ratio 14.6 (12.0-20.0); Creatinine, Blood 0.89 mg/dL (0.40-1.00); Globulin, Blood 3.3 g/dL (2.2-4.0); Potassium, Blood 3.9 mmol/L (3.5-5.5); Total Protein, Blood 7.2 g/dL (6.4-8.2)
[2024-04-23] MEDS ORDERED: NS 1,000 ML IV ONE ×2 (15:29→16:56)
[2024-04-23] MEDS ORDERED: propofoL 100 ML IV ONE ×2 (15:29→17:50)
[2024-04-23] MEDS ORDERED: propofoL 100 ML IV SCH (15:45)
[2024-04-23] MEDS ORDERED: FentaNYL Citrate 50 MCG/ML 2 ML Injection ONE (16:40)
[2024-04-23] MEDS ORDERED: fentaNYL citrate 1,000 MCG in NS 80 ML IV SCH (16:45)
[2024-04-23] MEDS ORDERED: Ketamine HCl 100 MG / ML 5ML Vial IV ONE (17:15)
[2024-04-23] MEDS ORDERED: Ketamine HCL 1,000 MG in NS 100 ML IV SCH (17:25)
[2024-04-23 18:00] VITALS: BP 83/48
[2024-04-23] MEDS ORDERED: Naloxone HCl 0.4MG / ML 1ML Vial XX ONE (21:40)
[2024-04-23] MEDS ORDERED: Rocuronium Bromide 10 MG/ML 5ML Injection IV ONE (21:40)
[2024-04-23] MEDS ORDERED: Ketamine HCl 100 MG / ML 5ML Vial XX ONE (21:40)
[2024-04-23] MEDS ORDERED: Phenylephrine HCl 100 MCG/ML-NS 10MLSYR (1MG/10ML) IV ONE (21:40)
[2024-04-23] MEDS ORDERED: Etomidate 2MG / ML 10ML Vial XX ONE (21:40)
== END 2024-04-23 18:15 | disposition short-term general hospital (02) ==
LOC: ER 14:02
PROVIDERS: Physician Assistant
DX: R06.02 Shortness of breath (principal); Z88.0 Allergy status to penicillin; Z79.899 Other long term (current) drug therapy; Z79.82 Long term (current) use of aspirin; I10 Essential (primary) hypertension; G47.30 Sleep apnea, unspecified
CPT/HCPCS: 31500; 51702; 71045; 71046; 80053; 83880; 84484; 85025; 93005; 93010; 94002; 94644; 94664; 96365-59; 99285-25; J2310; J2371; J2704; J3010; J7030; J7060

== ENCOUNTER 2024-10-31 02:14 | Day surgery (SDC) | payer MEDICARE ==
[~2024-10-31] VITALS: Wt 156.0 kg
[2024-10-31] MEDS ORDERED: IMMUN GLOB G(IGG)/PRO/IGA 0-50 100 ML IV SCH (06:00)
[2024-10-31] MEDS ORDERED: Dexamethasone Sod Phos 10 MG/ML 1ML VIAL IV SCH (07:10)
[2024-10-31] MEDS ORDERED: DiphenhydrAMINE HCL 25 MG Cap PO PRN (07:10)
[2024-10-31] MEDS ORDERED: Acetaminophen 325 MG TABLET PO PRN (07:10)
[2024-10-31 07:33] VITALS: BP 96/70
[2024-10-31] MEDS ORDERED: Prednisone10 MG PO (07:34)
[2024-10-31 08:19] VITALS: BP 111/75
[2024-10-31 08:32] VITALS: BP 128/70
[2024-10-31 08:50] VITALS: BP 118/65
[2024-10-31 09:06] VITALS: BP 120/72
== END 2024-10-31 11:28 | disposition home or self-care (01) ==
LOC: ATC 02:14
DX: G70.00 Myasthenia gravis without (acute) exacerbation (principal); G47.33 Obstructive sleep apnea (adult) (pediatric); E66.89 Other obesity not elsewhere classified; E78.5 Hyperlipidemia, unspecified; Z99.89 Dependence on other enabling machines and devices; Z79.899 Other long term (current) drug therapy; Z88.0 Allergy status to penicillin
CPT/HCPCS: 96365; 96366; 96375; A9270; J1100; J1459

== ENCOUNTER 2024-11-14 07:41 | Day surgery (SDC) | payer MEDICARE ==
[~2024-11-14] VITALS: Wt 154.4 kg
[2024-11-14 07:41] VITALS: BP 155/91
[~2024-11-14 07:41] MED LIST changes: +Acetaminophen 325 MG TABLET PO SCH; +Dexamethasone Sod Phos 10 MG/ML 1ML VIAL IV SCH; +DiphenhydrAMINE HCL 25 MG Cap PO SCH; +IMMUN GLOB G(IGG)/PRO/IGA 0-50 100 ML IV SCH; +Prednisone10 MG PO
[2024-11-14 08:15] VITALS: BP 112/67
[2024-11-14 08:30] VITALS: BP 128/74
[2024-11-14 08:47] VITALS: BP 141/73
[2024-11-14 10:57] VITALS: BP 146/87
== END 2024-11-14 11:02 | disposition home or self-care (01) ==
LOC: ATC 07:41
DX: G70.00 Myasthenia gravis without (acute) exacerbation (principal); G64 Other disorders of peripheral nervous system; I10 Essential (primary) hypertension; J44.9 Chronic obstructive pulmonary disease, unspecified; E78.5 Hyperlipidemia, unspecified; G47.30 Sleep apnea, unspecified; Z88.0 Allergy status to penicillin; Z79.890 Hormone replacement therapy; Z79.899 Other long term (current) drug therapy
CPT/HCPCS: 96365; 96366; 96375; A9270; J1100; J1459

== ENCOUNTER 2024-11-28 05:56 | Day surgery (SDC) | payer MEDICARE ==
[~2024-11-28] VITALS: Wt 153.3 kg
[~2024-11-28 05:56] MED LIST changes: -Acetaminophen 325 MG TABLET PO SCH; -Dexamethasone Sod Phos 10 MG/ML 1ML VIAL IV SCH; -DiphenhydrAMINE HCL 25 MG Cap PO SCH; -IMMUN GLOB G(IGG)/PRO/IGA 0-50 100 ML IV SCH
[2024-11-28] MEDS ORDERED: IMMUN GLOB G(IGG)/PRO/IGA 0-50 100 ML IV SCH (06:00)
[2024-11-28] MEDS ORDERED: Acetaminophen 325 MG TABLET PO SCH (07:05)
[2024-11-28] MEDS ORDERED: Dexamethasone Sodium Phosphate 4 MG/ML 5ML VIAL IV SCH (07:05)
[2024-11-28] MEDS ORDERED: DiphenhydrAMINE HCL 25 MG Cap PO SCH (07:05)
[2024-11-28 07:25] VITALS: BP 129/92
[2024-11-28 08:12] VITALS: BP 125/78
[2024-11-28 08:27] VITALS: BP 112/71
[2024-11-28 08:45] VITALS: BP 108/82
== END 2024-11-28 11:56 | disposition home or self-care (01) ==
LOC: ATC 05:56
DX: G70.00 Myasthenia gravis without (acute) exacerbation (principal); G47.33 Obstructive sleep apnea (adult) (pediatric); E78.5 Hyperlipidemia, unspecified; I10 Essential (primary) hypertension; Z88.0 Allergy status to penicillin; Z88.8 Allergy status to other drugs, medicaments and biological substances; Z79.890 Hormone replacement therapy; Z79.899 Other long term (current) drug therapy
CPT/HCPCS: 96365; 96366; 96375; A9270; J1100; J1459

== ENCOUNTER 2024-12-19 04:04 | Day surgery (SDC) | payer MEDICARE ==
[2024-12-19] MEDS ORDERED: RITUXIMAB ABBS IV SCH (06:00)
[2024-12-19] MEDS ORDERED: NS IV SCH (06:00)
[2024-12-19] MEDS ORDERED: Acetaminophen 325 MG TABLET PO SCH (07:00)
[2024-12-19] MEDS ORDERED: MethylPREDNISolone Sod Succ 125 MG Vial IV SCH (07:00)
[2024-12-19 07:35] VITALS: BP 135/78
[2024-12-19] MEDS ORDERED: Rituxan10 MG/ML IV (07:38)
[2024-12-19 08:51] VITALS: BP 109/62
[2024-12-19 09:20] VITALS: BP 103/68
[2024-12-19 09:53] VITALS: BP 93/57
[2024-12-19 10:35] VITALS: BP 111/73
== END 2024-12-19 10:40 | disposition home or self-care (01) ==
LOC: ATC 04:04
DX: G70.00 Myasthenia gravis without (acute) exacerbation (principal); G62.9 Polyneuropathy, unspecified; G89.29 Other chronic pain; M54.50 Low back pain, unspecified; G47.33 Obstructive sleep apnea (adult) (pediatric); J44.9 Chronic obstructive pulmonary disease, unspecified; I10 Essential (primary) hypertension; E78.5 Hyperlipidemia, unspecified; E66.9 Obesity, unspecified; Z68.43 Body mass index [BMI] 50.0-59.9, adult; Z79.890 Hormone replacement therapy; Z79.899 Other long term (current) drug therapy; Z88.0 Allergy status to penicillin
CPT/HCPCS: 96365; 96366; 96375; A9270; J2919; J7050; Q5115

== ENCOUNTER 2025-02-07 07:46 | Inpatient (IN) | payer MEDICARE ==
[~2025-02-07] VITALS: Ht 152.4 cm; Wt 158.4 kg
[2025-02-07] VITALS (27 sets, daily range): BP systolic 111–212; BP diastolic 74–145
[~2025-02-07 07:46] MED LIST changes: +Rituxan10 MG/ML IV
[2025-02-07 08:40] LABS: pH Blood Venous 7.42 (7.34-7.37)
[2025-02-07 08:45] LABS: BASOPHILS ABSOLUTE AUTO 0.04 K/mm3 (0.00-0.23); BASOPHILS PERCENT AUTO 1 % (0-2); EOSINOPHILS ABSOLUTE AUTO 0.03 K/mm3 (0.00-0.68); EOSINOPHILS PERCENT AUTO 1 % (0-6); Hematocrit 43.3 % (33.0-51.0); Hemoglobin 14.3 g/dL (11.5-16.0); IMMATURE GRAN ABSOLUTE AUTO 0.04 K/mm3 (0.00-0.10); IMMATURE GRAN PERCENT AUTO 1 % (0-1); LYMPHOCYTES ABSOLUTE AUTO 2.56 K/mm3 (0.84-5.20); LYMPHOCYTES PERCENT AUTO 40 % (21-46); MONOCYTES ABSOLUTE AUTO 0.58 K/mm3 (0.16-1.47); MONOCYTES PERCENT AUTO 9 % (4-13); Mean Corpuscular HGB Conc 33.0 g/dL (31.5-36.5); Mean Corpuscular Volume 92 fL (80-100); NEUTROPHILS ABSOLUTE AUTO 3.18 K/mm3 (1.96-9.15); NEUTROPHILS PERCENT AUTO 50 % (41-73); NRBC ABSOLUTE 0.00 K/mm3 (0.00-0.02); NRBC Auto 0.0 /100 WBC (0.0-0.2); RDW Coefficient Variation 13.2 % (11.7-14.2); RDW Standard Deviation 44.8 fL (35.1-46.3)
[2025-02-07 08:53] LABS: Alanine Aminotransfer (ALT/SGP 29.0 U/L (12-78); Albumin, Blood 3.3 g/dL (3.4-5.0); Albumin/Globulin Ratio 0.8 (0.8-1.8); Anion Gap 7.0 mmol/L (3-11); Aspartate Aminotrans (AST/SGOT 28.0 U/L (12-37); Bilirubin, Total 0.8 mg/dL (0.1-1.0); Blood Urea Nitrogen 18.0 mg/dL (8-24); CO2, Blood 26.0 mmol/L (21-32); Calcium, Blood 9.2 mg/dL (8.5-10.1); Chloride, Blood 109.0 mmol/L (98-108); Creatinine, Blood 1.01 mg/dL (0.40-1.00); Globulin, Blood 4.1 g/dL (2.2-4.0); Glucose, Blood 110.0 mg/dL (70-99); Potassium, Blood 3.9 mmol/L (3.5-5.5); Sodium, Blood 138.0 mmol/L (136-145); Total Protein, Blood 7.4 g/dL (6.4-8.2)
[2025-02-07] MEDS ORDERED: IMMUN GLOB G(IGG)/PRO/IGA 0-50 100 ML IV SCH (09:00)
[2025-02-07 09:05] LABS: Platelet Count 248 K/mm3 (150-400)
[2025-02-07] MEDS ORDERED: NEOSTIGMINE IV ONE (09:05)
[2025-02-07] MEDS ORDERED: Neostigmine Methylsulfate 5MG/5ML SYR XX ONE (09:20)
[2025-02-07] MEDS ORDERED: NS 1,000 ML IV SCH (09:55)
[2025-02-07] MEDS ORDERED: NS IV SCH (10:30)
[2025-02-07] MEDS ORDERED: METHYLPREDNISOLONE SOD SUCC IV SCH (10:30)
[2025-02-07] MEDS ORDERED: K-TAB ER20 ME1 PO (12:16)
[2025-02-07] MEDS ORDERED: HydrALAZINE HCl 20 MG / ML 1ML Vial IV PRN (12:45)
[2025-02-07] MEDS ORDERED: FentaNYL Citrate 50 MCG/ML 2 ML Injection IV PRN (12:50)
--- NOTE | 2025-02-07 13:00 | NUR ---
ARRIVAL TO ICU PT ARRIVED TO ICU-12 VIA GURNEY AT 1113. PT ALERT/ORIENTED X4. SPEECH IS SOFT & STUTTERED AT TIMES, BUT PT IS ABLE TO COMMUNICATE NEEDS & HISTORY W/ STAFF. PT REPORTS PROFOUND WEAKNESS THROUGHOUT ALL EXTREMITIES, BLE > BUE. PT STATES IT IS DIFFICULT TO OPEN HER EYES. PT IS ON ROOM AIR W/ SPO2 >90%, CPAP AT BEDSIDE TO WEAR WHILE SLEEPING. HR 60-80'S, SINUS RHYTHM ON MONITOR. SBP UP TO 212; PT MEDICATED FOR SEVERE PAIN & ANXIETY PER EMAR W/ SIGNIFICANT IMPROVEMENT. AFEBRILE. PUREWICK PLACED FOR ACCURATE I&O'S DUE TO INCONTINENCE AT BASELINE. ORDERS RECEIVED FOR UA, STRAIGHT CATH COMPLETED TO OBTAIN SAMPLE. POWERGLIDE PLACED TO PRUDENCIO, NS INFUSING PER EMAR. RFA PIV INFUSING IVIG, SEE CC FLOWSHEET FOR TITRATIONS. PT SPOKE TO COUSIN/CAREGIVER, MICHAELA, W/ ASSISTANCE TO UPDATE HER ON CURRENT CONDITION. PT ORIENTED TO ROOM/UNIT/CALL LIGHT. PT RESTING IN BED W/ CPAP IN PLACE AT THIS TIME.
[2025-02-07 14:06] LABS: Source, Urine Clean Catch
[2025-02-07 14:34] LABS: Bilirubin, Urine Neg (Neg); Color, Urine Yellow (P-Yellow); Glucose Qualitative, Urine Neg (Neg); Ketones, Urine Neg (Neg); Leukocyte Esterase, Urine Neg (Neg); Protein, Urine 1+ (Neg); Specific Gravity, Urine 1.015 (1.003-1.022); Urobilinogen, Urine NORM (Normal)
--- NOTE | 2025-02-07 18:09 | NUR ---
END OF SHIFT NOTE: NO ACUTE EVENTS FOLLOWING ARRIVAL TO ICU. PT HAS SLEPT FOR MAJORITY OF THE AFTERNOON ON BIPAP / 30%. PT ON RA WHILE AWAKE W/ SPO2 >90%. RESPIRATIONS EVEN & UNLABORED. HR 60-80'S, SINUS RHYTHM ON MONITOR. BP STABLE, MAP >65. AFEBRILE. PW IN PLACE. NS INFUSING AT 75ML/HR. IVIG COMPLETED FOR TODAY PER ORDERS. NO OTHER NEEDS AT THIS TIME, CALL LIGHT IN REACH.
[2025-02-08] VITALS (21 sets, daily range): BP systolic 114–154; BP diastolic 64–121
[2025-02-08 03:39] LABS: Hematocrit 41.2 % (33.0-51.0); Hemoglobin 13.6 g/dL (11.5-16.0); Mean Corpuscular HGB Conc 33.0 g/dL (31.5-36.5); Mean Corpuscular Volume 90 fL (80-100); NRBC ABSOLUTE 0.00 K/mm3 (0.00-0.02); NRBC Auto 0.0 /100 WBC (0.0-0.2); Platelet Count 249 K/mm3 (150-400); RDW Coefficient Variation 12.9 % (11.7-14.2); RDW Standard Deviation 42.5 fL (35.1-46.3)
[2025-02-08 04:06] LABS: Alanine Aminotransfer (ALT/SGP 28.0 U/L (12-78); Albumin, Blood 3.1 g/dL (3.4-5.0); Albumin/Globulin Ratio 0.7 (0.8-1.8); Anion Gap 7.0 mmol/L (3-11); Aspartate Aminotrans (AST/SGOT 23.0 U/L (12-37); Bilirubin, Total 0.7 mg/dL (0.1-1.0); Blood Urea Nitrogen 19.0 mg/dL (8-24); CO2, Blood 25.0 mmol/L (21-32); Calcium, Blood 8.8 mg/dL (8.5-10.1); Chloride, Blood 108.0 mmol/L (98-108); Creatinine, Blood 0.94 mg/dL (0.40-1.00); Globulin, Blood 4.7 g/dL (2.2-4.0); Glucose, Blood 177.0 mg/dL (70-99); Potassium, Blood 4.4 mmol/L (3.5-5.5); Sodium, Blood 136.0 mmol/L (136-145); Total Protein, Blood 7.8 g/dL (6.4-8.2)
--- NOTE | 2025-02-08 06:33 | NUR ---
SHIFT SUMMARY: PT SLEPT AND WORE THE CPAP THROUGH MOST OF THE NIGHT. SHE HAS SAID THAT SHE IS FEELING BETTER. SHE IS SWALLOWING WELL FOR PO MEDS. SHE IS MOVING HER HEAD AND EXTREMITIES BETTER AND IS TRYING TO SIT UP. HER BREATHING APPEARS BETTER AND SHE SAID SHE FEELS SHE'S BREATHING BETTER. SHE'S BEEN IN A SINUS RHYTHM 70S-80S. BP IS STABLE, HAS NOT REQUIRED PRN BLOOD PRESSURE MEDICATION THROUGH THE NIGHT.
[2025-02-08] MEDS ORDERED: Enoxaparin 40 MG/0.4 ML SYR SC SCH (09:00)
[2025-02-08] MEDS ORDERED: DULoxetine HCL 60 MG Capsule DR PO SCH (09:00)
--- NOTE | 2025-02-08 10:38 | NUR ---
AM NOTE: THIS RN ASSUMED CARE OF PT AT APPROX 0700, BEDSIDE REPORT FROM NOC RN. PT A/OX4, SITTING UP IN BED ON HER PHONE. ABLE TO KEEP EYES OPEN. MOVING ALL EXTREMITIES, LEFT SIDE WEAKER THAN RIGHT SIDE. PARTICIPATING IN CARE, STATES SHE FEELS SIGNIFICANTLY BETTER THIS AM THAN YESTERDAY. VSS. HR 70-80'S, SINUS RHYTHM ON MONITOR. SBP 120-140'S, MAP >65. DENIES CHEST PAIN/PRESSURE. SPO2 >90% ON ROOM AIR, RESPIRATIONS EVEN & UNLABORED. AFEBRILE. PUREWICK IN PLACE FOR ACCURATE I&O W/ INCONTINENCE. TOLERATING DIET WELL, NO S/S OF ASPIRATION. NS INFUSING AT 75ML/HR. IV SOLUMEDROL & IVIG PER ORDERS. PT IS RESTING IN BED W/ BIPAP IN PLACE AT THIS TIME. CALL LIGHT IN REACH.
[2025-02-08] MEDS ORDERED: IMMUN GLOB G(IGG)/PRO/IGA 0-50 100 ML IV SCH (11:00)
--- NOTE | 2025-02-08 15:59 | NUR ---
BELONGINGS: PT'S SPOUSE & CAREGIVER/COUSIN AT BEDSIDE TO VISIT THIS AFTERNOON. WITH PT'S PERMISSION, CAREGIVER/COUSIN WILL TAKE PT'S PURSE AND ALL BELONGINGS BACK HOME WITH THEM TODAY.
--- NOTE | 2025-02-08 18:13 | NUR ---
END OF SHIFT NOTE: NO ACUTE EVENTS THIS SHIFT. NEURO WNL. VSS. HR 60-80'S, SINUS RHYTHM ON MONITOR. SBP 110-140'S, MAP >65. SPO2 >90% ON RA WHILE AWAKE, BIPAP 14/8 30% WHILE ASLEEP. AFEBRILE. PT UP TO BSC FOR BM TODAY. PW IN PLACE FOR URINARY INCONTINENCE. ASSISTED W/ REPOSITIONING NEEDED. TOLERATING PO INTAKE WELL. NO OTHER NEEDS AT THIS TIME, CALL LIGHT IN REACH.
[2025-02-08] MEDS ORDERED: LEVSOD25 PO (20:07)
[2025-02-08] MEDS ORDERED: Prozac40 MG PO (20:08)
[2025-02-08] MEDS ORDERED: PANT40 PO (20:11)
[2025-02-08] MEDS ORDERED: CALCIUM 600 +1 EA11 PO (20:12)
[2025-02-08] MEDS ORDERED: MAGNESIUM OXID500 MG (20:12)
[2025-02-08] MEDS ORDERED: Atarax10 MG PO (20:12)
[2025-02-09] VITALS: BP 135/74
[2025-02-09 02:00] VITALS: BP 118/61
[2025-02-09 04:00] VITALS: BP 135/72
--- NOTE | 2025-02-09 05:42 | NUR ---
SHIFT SUMMARY: NO SIGNIFICANT CHANGES OVERNIGHT. PTS PAIN SEEMS TO BE BETTER MANAGED AT THIS NEW YARN WRAPPER DOSING AND WITH THE Q2HR BREAKTHROUGH DOSE. HER BREATHING REMAINS UNLABORED AT REST, SOB AND SHALLOW WITH EXERTION SECONDARY TO PAIN. LUNGS ARE CLEAR. PT HAS BEEN DRINKING ADEQUATE AMOUNTS OF WATER INDEPENDENTLY, IV FLUIDS CONTINUE AT 150ML/HR. VITALS ARE WNL.
[2025-02-09] MEDS ORDERED: NS IV SCH (09:00)
[2025-02-09] MEDS ORDERED: METHYLPREDNISOLONE SOD SUCC IV SCH (09:00)
[2025-02-09] MEDS ORDERED: Ondansetron HCl 2 MG / ML 2ML Vial IV PRN (13:00)
[2025-02-09] MEDS ORDERED: Ketorolac Tromethamine 15mg Vial IV PRN (15:40)
[2025-02-09 15:48] VITALS: BP 139/99
--- NOTE | 2025-02-09 15:59 | NUR ---
Transfer. Pt transferred to PCU room 11. Report given to CODE ENFORCEMENT SUPERVISOR assuming care. Pt alert and oriented at time of transfer, VS stable. All personal belongings sent with patient to new room. Spouse updated on new room number.
--- NOTE | 2025-02-09 17:53 | NUR ---
End of Shift Pt brought to PCU-11 by bed from ICU-12 at approx 1545. Ceiling lift used to transfer pt from ICU bed to PCU bed. Pt A&O x4, but keeping eyes closed while communicating w/ staff. Pt then later only opening R eye. Pt w/ full body shivering upon arrival w/ pt reporting "it's the medication that's been making me do this." Warm blanket provided & pt no longer shivering/shaking. Pt reporting not responding well to IVIG infusions. IVIG infusing @ 25 ml/hr. Pt c/o pain in "head, neck & shoulders." Pt medicated w/ PRN IV toradol per emar. Pt reporting significant improvement w/ medication. Pt then opening both eyes, sitting upright in bed, fully alert, reporting "I feel much better." Pt denying pain / discomfort.
[2025-02-09 20:19] VITALS: BP 139/81
[2025-02-10] VITALS (8 sets, daily range): BP systolic 117–174; BP diastolic 62–95
[2025-02-10 05:05] LABS: Anion Gap 6.0 mmol/L (3-11); Blood Urea Nitrogen 26.0 mg/dL (8-24); CO2, Blood 27.0 mmol/L (21-32); Calcium, Blood 8.5 mg/dL (8.5-10.1); Chloride, Blood 106.0 mmol/L (98-108); Creatinine, Blood 1.0 mg/dL (0.40-1.00); Glucose, Blood 153.0 mg/dL (70-99); Potassium, Blood 4.2 mmol/L (3.5-5.5); Sodium, Blood 135.0 mmol/L (136-145)
--- NOTE | 2025-02-10 07:21 | NUR ---
SHIFT SUMMARY: PT IS A&OX4, PLEASANT AND COOPERATIVE WITH CARE. PT IS ANXIOUS AND LABILE, STATES IT IS FROM THE HIGH DOSE OF STEROIDS. HTN, SYS >170, PRN HYDRALAZINE ADMINISTERED WITH GOOD EFFECT. ON RA, SATS >95% WEARS CPAP WHILE ASLEEP. SR 70'S-80'S. C/O EPIGASTRIC PAIN, CAUSING NAUSEA, MEDICATED PER EMAR WITH PRN ZOFRAN AND TORADOL. TOLERATING A HEART HEALTHY DIET. WICKING SYSTEM DRAINING ADEQUATE AMOUNT OF YELLOW URINE. NO BM THIS SHIFT, BRIEF IN PLACE. NOOB THIS SHIFT, REPOSITIONING TOLERATED. BED IN LOWEST POSITION, CALL LIGHT WITHIN REACH. CALLS APPROPRIATELY AND IS ABLE TO ADVOCATE NEEDS EFFECTIVELY.
[2025-02-10] MEDS ORDERED: Pantoprazole Sodium 40 MG Injection IV ONE (08:50)
--- NOTE | 2025-02-10 17:19 | NUR ---
End of Shift Pt A&O x4. VSS. Spo2 > 92% on 1L NC for pt comfort. Monitor showing NSR. At approx 0830 this AM, pt tearful in room then having moments w/ blank stare, but then fully alert & responsive when spoken to. Pt stating "I feel worse today than I did yesterday." Pt then c/o "I feel like my stomach is going to explode & I can't breathe." Pt spo2 > 92%. MD Hanson notified & came to bedside. Pt then reporting "My M.G. feels better but my stomache feels worse." MD requesting RT to bedside for NIF treatment. PRN po xanax provided as well. Pt then reporting "the fullness pressing on my diaphram feels better. I feel like I can breathe & I don't feel like I'm about to burst." Pt anxious about IV solu-medrol infusion. Pt tolerated infusion well. Pt then nauseous w/ IVIG infusion & c/o "head & stomache" pain. Pt medicated w/ PRN IV zofran & IV toradol w/ pt report of relief. Pt reporting pain decrease from 10/10 to 2/10. Pt up to bathroom w/ 1 person SBA w/ FWW. Pt reporting feeling stronger. Pt up in recliner chair for a few hours today. Pt now back in bed. Pt sister at bedside this shift visiting w/ pt. Pt tearful, stating sister lives in [place] & she hadn't seen her in 3 years.
[2025-02-11] VITALS (25 sets, daily range): BP systolic 88–166; BP diastolic 66–122
[2025-02-11 05:30] LABS: Anion Gap 7.0 mmol/L (3-11); Blood Urea Nitrogen 28.0 mg/dL (8-24); CO2, Blood 27.0 mmol/L (21-32); Calcium, Blood 8.2 mg/dL (8.5-10.1); Chloride, Blood 105.0 mmol/L (98-108); Creatinine, Blood 1.01 mg/dL (0.40-1.00); Glucose, Blood 160.0 mg/dL (70-99); Potassium, Blood 4.2 mmol/L (3.5-5.5); Sodium, Blood 135.0 mmol/L (136-145)
--- NOTE | 2025-02-11 06:34 | NUR ---
SHIFT SUMMARY: PT IS A&OX4, ANXIOUS AND LABILE, BUT PLEASANT AND COOPERATIVE WITH CARE. VSS ON 2L NC, SATS >95%, WEARS CPAP WHILE ASLEEP. SB-SR 50'S-70'S. C/O EPIGASTRIC PAIN, MEDICATED PER EMAR WITH PRN IV TORADOL. TOLERATING A HEART HEALTHY DIET. WICKING SYSTEM DRAINING ADEQUATE AMOUNT OF YELLOW URINE. NO BM THIS SHIFT, BRIEF IN PLACE. NOOB THIS SHIFT, REPOSITIONING SELF IN BED. BED IN LOWEST POSITION, CALL LIGHT WITHIN REACH. CALLS APPROPRIATELY AND IS ABLE TO ADVOCATE NEEDS EFFECTIVELY.
[2025-02-11] MEDS ORDERED: DELTASONE20 MG PO (12:48)
--- NOTE | 2025-02-11 18:37 | NUR ---
PT RECIEVED LAST IGIV INFUSION. INFUSION FINISHED AT 174. PT DISCHARGED AT 183. DISCHARGED INSTRUCTIONS COMPLETED. PT UNDERSTOOD ALL INSTRUCTIONS. CAREGIVER ARRIVED AT 1800. POWERGLIDE REMOVED AT 181. PT CHANGED INTO [employer]. NURSE TOOK PT TO FRONT IN A WHEEL CHAIR. HELPED PT INTO CAR. CAREGIVER DROVE HER HOME.
== END 2025-02-11 18:45 | disposition home or self-care (01) | DRG 57 ==
LOC: ER 07:46 → ICUE 09:50 → PCU 09:50 → ICUE 10:45 → PCU 02-09 15:46
PROVIDERS: Emergency Medicine; ADMIT Internal Medicine
PROC: 30233S1 Transfusion of Nonautologous Globulin into Peripheral Vein, Percutaneous Approach (ICD-10-PCS; principal; 2025-02-07)
DX: G70.00 Myasthenia gravis without (acute) exacerbation (principal); E87.1 Hypo-osmolality and hyponatremia; I10 Essential (primary) hypertension; E78.5 Hyperlipidemia, unspecified; G47.33 Obstructive sleep apnea (adult) (pediatric); J44.9 Chronic obstructive pulmonary disease, unspecified; Z66 Do not resuscitate; E03.9 Hypothyroidism, unspecified; F41.0 Panic disorder [episodic paroxysmal anxiety]; F32.A Depression, unspecified; E66.01 Morbid (severe) obesity due to excess calories; F41.9 Anxiety disorder, unspecified; G62.9 Polyneuropathy, unspecified; Z90.49 Acquired absence of other specified parts of digestive tract; Z82.49 Family history of ischemic heart disease and other diseases of the circulatory system; Z90.710 Acquired absence of both cervix and uterus; Z79.52 Long term (current) use of systemic steroids; Z79.82 Long term (current) use of aspirin; Z79.899 Other long term (current) drug therapy; Z79.890 Hormone replacement therapy; Z88.0 Allergy status to penicillin
CPT/HCPCS: 71045; 80048; 80053; 82803; 85025; 85027; 94660; 94760; 94762; 96374; 97162; 97166; 97530; 97535; 99285-25; A9270; C1751; J0360; J1459; J1650; J1885; J2405; J2470; J2710; J2919; J3010; J7030

== ENCOUNTER 2025-02-21 07:23 | Day surgery (SDC) | payer MEDICARE ==
[~2025-02-21 07:23] MED LIST changes: +Atarax10 MG PO; +CALCIUM 600 +1 EA11 PO; +DELTASONE20 MG PO; +Dexamethasone Sod Phos 10 MG/ML 1ML VIAL IV SCH; +IMMUN GLOB G(IGG)/PRO/IGA 0-50 100 ML IV SCH; +K-TAB ER20 ME1 PO; +LEVSOD25 PO; +MAGNESIUM OXID500 MG; +Prozac40 MG PO
[2025-02-21 07:44] VITALS: BP 149/86
[2025-02-21] MEDS ORDERED: PRED20 PO (07:49)
[2025-02-21 08:26] VITALS: BP 118/68
[2025-02-21 08:44] VITALS: BP 129/63
[2025-02-21 09:01] VITALS: BP 126/62
[2025-02-21 09:15] VITALS: BP 130/64
== END 2025-02-21 11:24 | disposition home or self-care (01) ==
LOC: ATC 07:23
DX: G70.00 Myasthenia gravis without (acute) exacerbation (principal); I10 Essential (primary) hypertension; E78.5 Hyperlipidemia, unspecified; J44.9 Chronic obstructive pulmonary disease, unspecified; Z79.899 Other long term (current) drug therapy; Z88.0 Allergy status to penicillin
CPT/HCPCS: 96365; 96366; 96375; A9270; J1100; J1459

== ENCOUNTER 2025-03-07 01:20 | Day surgery (SDC) | payer MEDICARE ==
[~2025-03-07] VITALS: Wt 152.0 kg
[~2025-03-07 01:20] MED LIST changes: -Dexamethasone Sod Phos 10 MG/ML 1ML VIAL IV SCH; -IMMUN GLOB G(IGG)/PRO/IGA 0-50 100 ML IV SCH; +PRED20 PO
[2025-03-07] MEDS ORDERED: IMMUN GLOB G(IGG)/PRO/IGA 0-50 100 ML IV SCH (06:00)
[2025-03-07] MEDS ORDERED: Dexamethasone Sod Phos 10 MG/ML 1ML VIAL IV SCH (07:10)
[2025-03-07 13:30] VITALS: BP 131/76
[2025-03-07] MEDS ORDERED: OMEP20ER PO (13:35)
[2025-03-07 14:16] VITALS: BP 141/81
[2025-03-07 14:34] VITALS: BP 142/84
[2025-03-07 14:45] VITALS: BP 128/72
== END 2025-03-07 17:07 | disposition home or self-care (01) ==
LOC: ATC 01:20
DX: G70.00 Myasthenia gravis without (acute) exacerbation (principal); J44.9 Chronic obstructive pulmonary disease, unspecified; I10 Essential (primary) hypertension; E78.5 Hyperlipidemia, unspecified; Z79.899 Other long term (current) drug therapy; Z88.0 Allergy status to penicillin; Z90.710 Acquired absence of both cervix and uterus
CPT/HCPCS: 96365; 96366; 96375; A9270; J1100; J1459

== ENCOUNTER 2025-03-21 02:04 | Day surgery (SDC) | payer MEDICARE ==
[2025-03-21] VITALS (7 sets, daily range): BP systolic 101–123; BP diastolic 74–89
[~2025-03-21] VITALS: Ht 152.4 cm; Wt 150.0 kg
[2025-03-21] MEDS ORDERED: IMMUN GLOB G(IGG)/PRO/IGA 0-50 100 ML IV SCH ×2 (06:00→09:10)
[2025-03-21] MEDS ORDERED: Dexamethasone Sod Phos 10 MG/ML 1ML VIAL IV SCH (06:55)
--- NOTE | 2025-03-21 09:05 | NUR ---
Pt states she saw Dr. Sherman Jackson on 03/10/25 and he was planning to increase the dose of her privigen. Called Dr. Jackson's office and spoke with Carolyn DIETRICH. New orders rec'd to increase from 60 to 80 grams of privigen every other week.
== END 2025-03-21 12:17 | disposition home or self-care (01) ==
LOC: ATC 02:04
DX: G70.00 Myasthenia gravis without (acute) exacerbation (principal); I10 Essential (primary) hypertension; E78.5 Hyperlipidemia, unspecified; J44.9 Chronic obstructive pulmonary disease, unspecified; Z79.899 Other long term (current) drug therapy; Z88.0 Allergy status to penicillin; Z90.710 Acquired absence of both cervix and uterus
CPT/HCPCS: 96365; 96366; 96375; A9270; J1100; J1459

== ENCOUNTER 2025-03-29 02:23 | Day surgery (SDC) | payer MEDICARE ==
[~2025-03-29 02:23] MED LIST changes: +IMMUN GLOB G(IGG)/PRO/IGA 0-50 100 ML IV SCH
[2025-03-29] MEDS ORDERED: Dexamethasone Sodium Phosphate 4 MG/ML 5ML VIAL IV SCH (07:00)
[2025-03-29] MEDS ORDERED: Dexamethasone Sod Phos 10 MG/ML 1ML VIAL IV SCH (07:00)
[2025-03-29 14:02] VITALS: BP 114/83
[2025-03-29 14:39] VITALS: BP 136/79
[2025-03-29 14:58] VITALS: BP 146/83
[2025-03-29 15:14] VITALS: BP 136/79
[2025-03-29 15:36] VITALS: BP 132/76
[2025-03-29 16:03] VITALS: BP 147/90
== END 2025-03-29 18:43 | disposition home or self-care (01) ==
LOC: ATC 02:23
DX: G70.00 Myasthenia gravis without (acute) exacerbation (principal); I10 Essential (primary) hypertension; E78.5 Hyperlipidemia, unspecified; J44.9 Chronic obstructive pulmonary disease, unspecified; Z79.899 Other long term (current) drug therapy; Z88.0 Allergy status to penicillin
CPT/HCPCS: 96365; 96366; 96375; A9270; J1100; J1459

== ENCOUNTER 2025-04-04 02:50 | Day surgery (SDC) | payer MEDICARE ==
[~2025-04-04 02:50] MED LIST changes: -IMMUN GLOB G(IGG)/PRO/IGA 0-50 100 ML IV SCH
[2025-04-04] MEDS ORDERED: IMMUN GLOB G(IGG)/PRO/IGA 0-50 100 ML IV SCH (06:00)
[2025-04-04] MEDS ORDERED: Dexamethasone Sod Phos 10 MG/ML 1ML VIAL IV SCH (07:10)
[2025-04-04] MEDS ORDERED: diphenhydrAMINE HCl 12.5 MG/5 ML 5MLUDC (Alcohol/Dye Free) PO SCH (07:10)
[2025-04-04 07:36] VITALS: BP 133/96
[2025-04-04 09:47] VITALS: BP 111/69
[2025-04-04 10:10] VITALS: BP 114/74
[2025-04-04 10:27] VITALS: BP 117/101
== END 2025-04-04 13:15 | disposition home or self-care (01) ==
LOC: ATC 02:50
DX: G70.00 Myasthenia gravis without (acute) exacerbation (principal); J44.9 Chronic obstructive pulmonary disease, unspecified; I10 Essential (primary) hypertension; Z88.0 Allergy status to penicillin; Z79.899 Other long term (current) drug therapy
CPT/HCPCS: 96365; 96366; A9270; J1100; J1459

== ENCOUNTER 2025-04-06 13:19 | Inpatient (IN) | payer MEDICARE ==
[~2025-04-06] VITALS: Ht 152.4 cm; Wt 154.2 kg
[2025-04-06] MEDS ORDERED: LORazepam 2 MG/ML 1ML Injection IV ONE ×2 (14:45→19:55)
[2025-04-06 16:10] LABS: BASOPHILS ABSOLUTE AUTO 0.01 K/mm3 (0.00-0.23); BASOPHILS PERCENT AUTO 0 % (0-2); EOSINOPHILS ABSOLUTE AUTO 0.00 K/mm3 (0.00-0.68); EOSINOPHILS PERCENT AUTO 0 % (0-6); Hematocrit 40.0 % (33.0-51.0); Hemoglobin 13.5 g/dL (11.5-16.0); IMMATURE GRAN ABSOLUTE AUTO 0.10 K/mm3 (0.00-0.10); IMMATURE GRAN PERCENT AUTO 1 % (0-1); LYMPHOCYTES ABSOLUTE AUTO 1.48 K/mm3 (0.84-5.20); LYMPHOCYTES PERCENT AUTO 20 % (21-46); MONOCYTES ABSOLUTE AUTO 0.43 K/mm3 (0.16-1.47); MONOCYTES PERCENT AUTO 6 % (4-13); Mean Corpuscular HGB Conc 33.8 g/dL (31.5-36.5); Mean Corpuscular Volume 92 fL (80-100); NEUTROPHILS ABSOLUTE AUTO 5.43 K/mm3 (1.96-9.15); NEUTROPHILS PERCENT AUTO 73 % (41-73); NRBC ABSOLUTE 0.02 K/mm3 (0.00-0.02); NRBC Auto 0.3 /100 WBC (0.0-0.2); Platelet Count 189 K/mm3 (150-400); RDW Coefficient Variation 15.0 % (11.7-14.2); RDW Standard Deviation 50.4 fL (35.1-46.3)
[2025-04-06] MEDS ORDERED: POTCHL20ER PO (17:37)
[2025-04-06] MEDS ORDERED: OZEMPIC0.25 MG/02 SC (17:39)
[2025-04-06 18:59] LABS: Alanine Aminotransfer (ALT/SGP 34.0 U/L (12-78); Albumin, Blood 3.0 g/dL (3.4-5.0); Albumin/Globulin Ratio 0.5 (0.8-1.8); Anion Gap 7.0 mmol/L (3-11); Aspartate Aminotrans (AST/SGOT 50.0 U/L (12-37); Bilirubin, Total 0.9 mg/dL (0.1-1.0); Blood Urea Nitrogen 18.0 mg/dL (8-24); CO2, Blood 28.0 mmol/L (21-32); Calcium, Blood 9.2 mg/dL (8.5-10.1); Chloride, Blood 103.0 mmol/L (98-108); Creatinine, Blood 0.94 mg/dL (0.40-1.00); Globulin, Blood 6.4 g/dL (2.2-4.0); Glucose, Blood 104.0 mg/dL (70-99); Potassium, Blood 4.2 mmol/L (3.5-5.5); Sodium, Blood 134.0 mmol/L (136-145); Total Protein, Blood 9.4 g/dL (6.4-8.2)
[2025-04-06 19:33] LABS: Source, Urine Voided
[2025-04-06 19:39] LABS: Bilirubin, Urine Neg (Neg); Color, Urine Yellow (P-Yellow); Glucose Qualitative, Urine Neg (Neg); Ketones, Urine Neg (Neg); Leukocyte Esterase, Urine Neg (Neg); Protein, Urine Neg (Neg); Specific Gravity, Urine 1.020 (1.003-1.022); Urobilinogen, Urine NORM (Normal)
[2025-04-06 20:07] LABS: Red Blood Cells, Urine 0-2 /hpf (0-2); White Blood Cells, Urine 0-2 /hpf (0-5)
[2025-04-06] MEDS ORDERED: Ketorolac Tromethamine 30mg Vial IV ONE (20:10)
[2025-04-06] MEDS ORDERED: NS 1,000 ML IV SCH (22:20)
[2025-04-06] MEDS ORDERED: FLU VACC TS2025(65UP)/MF59C/PF 45 MCG/0.5 ML SYRINGE IM SCH (22:25)
[2025-04-06] MEDS ORDERED: Ondansetron HCl 2 MG / ML 2ML Vial IV PRN (22:25)
[2025-04-06] MEDS ORDERED: Enoxaparin 40 MG/0.4 ML SYR SC SCH (23:00)
[2025-04-07] MEDS ORDERED: Insulin Human Lispro 100 Units/ML 3ML Syringe SC SCH (07:30)
[2025-04-07] MEDS ORDERED: Enoxaparin 40 MG/0.4 ML SYR SC SCH (09:00)
[2025-04-07 10:01] LABS: BASOPHILS ABSOLUTE AUTO 0.02 K/mm3 (0.00-0.23); BASOPHILS PERCENT AUTO 0 % (0-2); EOSINOPHILS ABSOLUTE AUTO 0.01 K/mm3 (0.00-0.68); EOSINOPHILS PERCENT AUTO 0 % (0-6); Hematocrit 45.2 % (33.0-51.0); Hemoglobin 14.6 g/dL (11.5-16.0); IMMATURE GRAN ABSOLUTE AUTO 0.06 K/mm3 (0.00-0.10); IMMATURE GRAN PERCENT AUTO 1 % (0-1); LYMPHOCYTES ABSOLUTE AUTO 3.01 K/mm3 (0.84-5.20); LYMPHOCYTES PERCENT AUTO 40 % (21-46); MONOCYTES ABSOLUTE AUTO 0.69 K/mm3 (0.16-1.47); MONOCYTES PERCENT AUTO 9 % (4-13); Mean Corpuscular HGB Conc 32.3 g/dL (31.5-36.5); Mean Corpuscular Volume 96 fL (80-100); NEUTROPHILS ABSOLUTE AUTO 3.74 K/mm3 (1.96-9.15); NEUTROPHILS PERCENT AUTO 50 % (41-73); NRBC ABSOLUTE 0.00 K/mm3 (0.00-0.02); NRBC Auto 0.0 /100 WBC (0.0-0.2); Platelet Count 196 K/mm3 (150-400); RDW Coefficient Variation 15.4 % (11.7-14.2); RDW Standard Deviation 53.9 fL (35.1-46.3)
[2025-04-07 10:25] LABS: Alanine Aminotransfer (ALT/SGP 42.0 U/L (12-78); Albumin, Blood 3.0 g/dL (3.4-5.0); Albumin/Globulin Ratio 0.5 (0.8-1.8); Anion Gap 7.0 mmol/L (3-11); Aspartate Aminotrans (AST/SGOT 49.0 U/L (12-37); Bilirubin, Total 1.4 mg/dL (0.1-1.0); Blood Urea Nitrogen 21.0 mg/dL (8-24); CO2, Blood 25.0 mmol/L (21-32); Calcium, Blood 8.7 mg/dL (8.5-10.1); Chloride, Blood 104.0 mmol/L (98-108); Creatinine, Blood 0.98 mg/dL (0.40-1.00); Globulin, Blood 6.3 g/dL (2.2-4.0); Glucose, Blood 86.0 mg/dL (70-99); Potassium, Blood 3.8 mmol/L (3.5-5.5); Sodium, Blood 132.0 mmol/L (136-145); Total Protein, Blood 9.3 g/dL (6.4-8.2)
[2025-04-07 13:45] VITALS: BP 119/68
--- NOTE | 2025-04-07 15:31 | NUR ---
"Spiritual Care | Nurse Request Pt. is awake in bed and welcomed my visit. Pt. is unsettled by the circumstances of her health and her 's dementia. Listen with empathy and a calming presence. Pt. began to verbalize her own life review which lead to the Pt. verbalizing questions of nel and belief. Pt. displayed evidence of trust and engagement. Prayed with the Pt. Pt. 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
--- NOTE | 2025-04-07 18:02 | NUR ---
ADMISSION AND SHIFT SUMMARY PATIENT ALERT AND INTERACTIVE. PATIENT ADMITTED TO MEDICAL FLOOR. PATIENT UP TO BR AND BACK TO BED WITH MINIMAL ASSIST. PATIENT WORKED WITH OT. PATIET EASILY TEARFUL AND TALKING ABOUT HER AND ALL THE THINGS SHE NEEDS TO DO. PATIENT FEELING OVERWHELMED. PASTORAL CARE CALLED TO TALK WITH PATIENT. PALLIATIVE CARE NOTIFIED OF PATIENT'S READMISSION AND FRUSTRATIONS.
[2025-04-07 19:20] VITALS: BP 139/77
[2025-04-08 00:21] VITALS: BP 129/64
[2025-04-08 05:01] VITALS: BP 123/68
[2025-04-08 05:24] LABS: BASOPHILS ABSOLUTE AUTO 0.01 K/mm3 (0.00-0.23); BASOPHILS PERCENT AUTO 0 % (0-2); EOSINOPHILS ABSOLUTE AUTO 0.00 K/mm3 (0.00-0.68); EOSINOPHILS PERCENT AUTO 0 % (0-6); Hematocrit 37.7 % (33.0-51.0); Hemoglobin 12.5 g/dL (11.5-16.0); IMMATURE GRAN ABSOLUTE AUTO 0.05 K/mm3 (0.00-0.10); IMMATURE GRAN PERCENT AUTO 1 % (0-1); LYMPHOCYTES ABSOLUTE AUTO 2.28 K/mm3 (0.84-5.20); LYMPHOCYTES PERCENT AUTO 37 % (21-46); MONOCYTES ABSOLUTE AUTO 0.57 K/mm3 (0.16-1.47); MONOCYTES PERCENT AUTO 9 % (4-13); Mean Corpuscular HGB Conc 33.2 g/dL (31.5-36.5); Mean Corpuscular Volume 92 fL (80-100); NEUTROPHILS ABSOLUTE AUTO 3.24 K/mm3 (1.96-9.15); NEUTROPHILS PERCENT AUTO 53 % (41-73); NRBC ABSOLUTE 0.00 K/mm3 (0.00-0.02); NRBC Auto 0.0 /100 WBC (0.0-0.2); Platelet Count 198 K/mm3 (150-400); RDW Coefficient Variation 15.5 % (11.7-14.2); RDW Standard Deviation 52.7 fL (35.1-46.3)
[2025-04-08 05:46] LABS: Alanine Aminotransfer (ALT/SGP 38.0 U/L (12-78); Albumin, Blood 2.8 g/dL (3.4-5.0); Albumin/Globulin Ratio 0.5 (0.8-1.8); Anion Gap 7.0 mmol/L (3-11); Aspartate Aminotrans (AST/SGOT 39.0 U/L (12-37); Bilirubin, Total 1.2 mg/dL (0.1-1.0); Blood Urea Nitrogen 21.0 mg/dL (8-24); CO2, Blood 28.0 mmol/L (21-32); Calcium, Blood 8.3 mg/dL (8.5-10.1); Chloride, Blood 105.0 mmol/L (98-108); Creatinine, Blood 0.97 mg/dL (0.40-1.00); Globulin, Blood 5.3 g/dL (2.2-4.0); Glucose, Blood 79.0 mg/dL (70-99); Potassium, Blood 3.8 mmol/L (3.5-5.5); Sodium, Blood 136.0 mmol/L (136-145); Total Protein, Blood 8.1 g/dL (6.4-8.2)
--- NOTE | 2025-04-08 06:27 | NUR ---
SHIFT SUMMARY PT OOB WITH FWW AND 1 ASSIST. C/O FATIGUE AND SOB WITH TOO MUCH ACTIVITY. PUREWICK IN PLACE, DRAINING YELLOW URINE. BIPAP ON AT HS PER RESPIRATORY. PT ABLE TO TAKE MEDICATIONS 1 AT A TIME WITH WATER. TOLERATING FULL LIQUID DIET. PT ABLE TO TURN SELF AND REPOSITION IN BED. PT SLEPT INTERMITTENTLY DURING THE NIGHT.
[2025-04-08 07:15] VITALS: BP 141/69
[2025-04-08] MEDS ORDERED: Trimethoprim/Sulfamethoxazole DS Tab PO SCH (12:46)
[2025-04-08] MEDS ORDERED: IMMUN GLOB G(IGG)/PRO/IGA 0-50 100 ML IV SCH (14:00)
--- NOTE | 2025-04-08 15:51 | NUR ---
PALLIATIVE CARE CONSULT: REQUESTED BY RN FOR SOCIAL/PSYCHE DISTRESS. SPOKE TO PRIMARY RN PRIOR TO VISIT LATE EVENING YESTERDAY. MET WITH PT AND SPOUSE IS PRESENT. LISTENED ATTENTIVELY TO HER CONCERNS. PT IS TEARFUL THROUGHOUT OUR CONVERSATION. PROVIDED MORAL AND EMOTIONAL SUPPORT. PT HAS MANY CONCERNS REGARDING HER LIVING SITUATION AND DECLINING HEALTH. SHE IS ATTEMPTING TO GET HER HOUSE SOLD SO SHE AND HER SPOUSE WHO HAS DEMENTIA CAN MOVE INTO ASSISTED LIVING FACILITY. SHE HAS TOURED [facility] AND IS INTERESTED IN THIS FACILITY. PT ALSO HAS CONCERNS SHE IS NO LONGER ABLE TO CARE FOR HER HOME AND IS IN NEED OF A CHILD LIFE THERAPIST AND HAS HAD DIFFICULTY FINDING A CHILD LIFE THERAPIST. SHE HAS COUSIN WHO LIVES ON PROPERTY BUT IS OF MINIMAL ASSISTANCE AT THIS TIME. PROVIDED MEALS AT TIMES. SHE IS VERY COGNISENT OF HER ILLNESS AND TREATMENT PLAN. SHE STATES MULTIPLE TIMES SHE IS "EMOTIONALLY AT MY END". SHE IS AWARE TITRATION OF HER ANTIDEPRESSANT AND ANXIETY MEDICATIONS NEED TO BE CAREFULLY ADJUSTED AND WITH HER NEUROLOGIST DR. PERERA ADVICE. PCP DR. ARELLANO IS WORKING ON THIS. DISCUSSED MEDICATION SIDE EFFECTS OF TITRATING PREDNISONE CAN ALSO CAUSE BEHAVIOR/EMOTIONAL CHANGES. PT SHOWS SIGNS OF BEING HIGHLY EMOTIONAL OVER HAVING TO GET A NEW IV. GAVE PT THE [employer] BOOK AND BOOKMARKED THE SECTION THAT HAS LIST OF HOME CARE AGENCIES THAT PROVIDE HOUSEKEEPING. PT WAS THANKFUL AND APPEARED TO BE CALMER AND NOT TEARFUL AT END OF CONVERSATION.
[2025-04-08 17:01] VITALS: BP 134/73
--- NOTE | 2025-04-08 18:36 | NUR ---
SHIFT SUMMARY PT A&OX4, VSS, RA DURING DAY, BIPAP AT NIGHT. SR IN 80S ON TELE. THIS MORNING PT STATED SHE WAS TOO WEAK TO GET OUT OF BED, ABLE TO WALK TO BATHROOM WITH FWW 1PA THIS AFTERNOON. IVIG DELAYED D/T PT NOT HAVING IV ACCESS UNTIL 1739. NEW POWER GLIDE IN PLACE, IVIG RUNNING, PT TOLERATING WELL. PT ABLE TO MAKE NEEDS KNOWN, CALL LIGHT IN REACH.
[2025-04-08 19:01] VITALS: BP 103/63
[2025-04-09 00:04] VITALS: BP 121/72
[2025-04-09 04:26] VITALS: BP 121/66
[2025-04-09 05:36] LABS: BASOPHILS ABSOLUTE AUTO 0.01 K/mm3 (0.00-0.23); BASOPHILS PERCENT AUTO 0 % (0-2); EOSINOPHILS ABSOLUTE AUTO 0.01 K/mm3 (0.00-0.68); EOSINOPHILS PERCENT AUTO 0 % (0-6); Hematocrit 36.1 % (33.0-51.0); Hemoglobin 12.0 g/dL (11.5-16.0); IMMATURE GRAN ABSOLUTE AUTO 0.04 K/mm3 (0.00-0.10); IMMATURE GRAN PERCENT AUTO 1 % (0-1); LYMPHOCYTES ABSOLUTE AUTO 2.06 K/mm3 (0.84-5.20); LYMPHOCYTES PERCENT AUTO 36 % (21-46); MONOCYTES ABSOLUTE AUTO 0.46 K/mm3 (0.16-1.47); MONOCYTES PERCENT AUTO 8 % (4-13); Mean Corpuscular HGB Conc 33.2 g/dL (31.5-36.5); Mean Corpuscular Volume 93 fL (80-100); NEUTROPHILS ABSOLUTE AUTO 3.22 K/mm3 (1.96-9.15); NEUTROPHILS PERCENT AUTO 56 % (41-73); NRBC ABSOLUTE 0.00 K/mm3 (0.00-0.02); NRBC Auto 0.0 /100 WBC (0.0-0.2); Platelet Count 159 K/mm3 (150-400); RDW Coefficient Variation 15.3 % (11.7-14.2); RDW Standard Deviation 51.8 fL (35.1-46.3)
[2025-04-09 05:49] LABS: Alanine Aminotransfer (ALT/SGP 39.0 U/L (12-78); Albumin, Blood 2.7 g/dL (3.4-5.0); Albumin/Globulin Ratio 0.5 (0.8-1.8); Anion Gap 6.0 mmol/L (3-11); Aspartate Aminotrans (AST/SGOT 42.0 U/L (12-37); Bilirubin, Total 0.9 mg/dL (0.1-1.0); Blood Urea Nitrogen 17.0 mg/dL (8-24); CO2, Blood 27.0 mmol/L (21-32); Calcium, Blood 8.1 mg/dL (8.5-10.1); Chloride, Blood 106.0 mmol/L (98-108); Creatinine, Blood 1.05 mg/dL (0.40-1.00); Globulin, Blood 5.3 g/dL (2.2-4.0); Glucose, Blood 81.0 mg/dL (70-99); Potassium, Blood 3.7 mmol/L (3.5-5.5); Sodium, Blood 135.0 mmol/L (136-145); Total Protein, Blood 8.0 g/dL (6.4-8.2)
--- NOTE | 2025-04-09 06:10 | NUR ---
SHIFT SUMMARY PT WITH 2 EPISODES OF DIARRHEA LAST PM- SHE REFUSED 2 DOSES OF PYRIDOSTIGMINE DUE TO THE DIARRHEA. PUREWICK REMOVED SECONDARY TO DIARRHEA. PT INCONT OF URINE, DEPENDS CHANGED PRN. IVIG DOSE COMPLETED WITHOUT ISSUES. POWERGLIDE VERY POSITIONAL, DIFFICULT TO DRAW BLOOD THIS AM. PT USING CPAP DURING THE NIGHT, ROOM AIR OTHERWISE. CONTINUOUS PULSE OX IN PLACE. PT SLEPT LONG INTERVALS DURING THE NIGHT.
[2025-04-09 07:18] VITALS: BP 128/68
[2025-04-09] MEDS ORDERED: IMMUN GLOB G(IGG)/PRO/IGA 0-50 100 ML IV SCH (09:00)
[2025-04-09] MEDS ORDERED: SULTRIDS PO (12:32)
== END 2025-04-09 13:50 | disposition home health service (06) | DRG 57 ==
LOC: ER 13:19 → ERHOLD 13:20 → MEDS 13:20 → ER 13:20 → MEDS 13:20 → ERHOLD 04-07 13:22 → MEDS 04-08 15:51
PROVIDERS: Emergency Medicine; Student in an Organized Health Care Education/Training Program; ADMIT Internal Medicine
PROC: 30233S1 Transfusion of Nonautologous Globulin into Peripheral Vein, Percutaneous Approach (ICD-10-PCS; principal; 2025-04-08)
DX: G70.00 Myasthenia gravis without (acute) exacerbation (principal); N39.0 Urinary tract infection, site not specified; F41.9 Anxiety disorder, unspecified; F32.A Depression, unspecified; E03.9 Hypothyroidism, unspecified; G47.33 Obstructive sleep apnea (adult) (pediatric); R54 Age-related physical debility; Z88.0 Allergy status to penicillin; Z98.890 Other specified postprocedural states; Z79.899 Other long term (current) drug therapy; I10 Essential (primary) hypertension; Z85.42 Personal history of malignant neoplasm of other parts of uterus; Z90.49 Acquired absence of other specified parts of digestive tract; Z90.710 Acquired absence of both cervix and uterus
CPT/HCPCS: 36415; 51701; 71045; 80053; 81001; 82947; 84439; 85025; 87077; 87086; 87186; 94660; 94762; 96372; 96374; 96375; 96376; 97110; 97116; 97162; 97165; 97530; 97535; 99285-25; A9270; G0378; J1459; J1650; J1885; J2060; J7512

== ENCOUNTER 2025-05-02 01:37 | Day surgery (SDC) | payer MEDICARE ==
[2025-05-02] VITALS (11 sets, daily range): BP systolic 107–134; BP diastolic 63–95
[~2025-05-02 01:37] MED LIST changes: +OZEMPIC0.25 MG/02 SC; +POTCHL20ER PO; +SULTRIDS PO
[2025-05-02] MEDS ORDERED: IMMUN GLOB G(IGG)/PRO/IGA 0-50 100 ML IV SCH (06:00)
[2025-05-02] MEDS ORDERED: Dexamethasone Sod Phos 10 MG/ML 1ML VIAL IV SCH (07:00)
== END 2025-05-02 11:54 | disposition home or self-care (01) ==
LOC: ATC 01:37
DX: G70.00 Myasthenia gravis without (acute) exacerbation (principal); J44.9 Chronic obstructive pulmonary disease, unspecified; I10 Essential (primary) hypertension; E78.5 Hyperlipidemia, unspecified; Z79.899 Other long term (current) drug therapy; Z88.0 Allergy status to penicillin
CPT/HCPCS: 96365; 96366; 96375; A9270; J1100; J1459

== ENCOUNTER 2025-05-08 03:50 | Day surgery (SDC) | payer MEDICARE ==
[2025-05-08] VITALS (9 sets, daily range): BP systolic 109–160; BP diastolic 68–95
[2025-05-08] MEDS ORDERED: IMMUN GLOB G(IGG)/PRO/IGA 0-50 100 ML IV SCH (06:00)
[2025-05-08] MEDS ORDERED: Dexamethasone Sod Phos 10 MG/ML 1ML VIAL IV SCH (06:00)
== END 2025-05-08 17:42 | disposition home or self-care (01) ==
LOC: ATC 03:50
DX: G70.00 Myasthenia gravis without (acute) exacerbation (principal); I10 Essential (primary) hypertension; E78.5 Hyperlipidemia, unspecified; Z88.0 Allergy status to penicillin; Z79.899 Other long term (current) drug therapy
CPT/HCPCS: 96365; 96366; A9270; J1100; J1459

== ENCOUNTER 2025-05-16 01:41 | Day surgery (SDC) | payer MEDICARE ==
[2025-05-16] MEDS ORDERED: Dexamethasone Sod Phos 10 MG/ML 1ML VIAL IV SCH (07:00)
[2025-05-16] MEDS ORDERED: DiphenhydrAMINE HCl 50 MG/ML 1ML Vial IV SCH (07:00)
[2025-05-16] MEDS ORDERED: IMMUN GLOB G(IGG)/PRO/IGA 0-50 100 ML IV SCH (07:00)
[2025-05-16 08:23] VITALS: BP 127/91
[2025-05-16 08:50] VITALS: BP 114/77
[2025-05-16 09:18] VITALS: BP 93/65
[2025-05-16 09:36] VITALS: BP 113/74
[2025-05-16 09:55] VITALS: BP 108/69
[2025-05-16 10:43] VITALS: BP 108/73
== END 2025-05-16 12:08 | disposition home or self-care (01) ==
LOC: ATC 01:41
DX: G70.00 Myasthenia gravis without (acute) exacerbation (principal); I10 Essential (primary) hypertension; E78.5 Hyperlipidemia, unspecified; Z88.0 Allergy status to penicillin; Z79.899 Other long term (current) drug therapy
CPT/HCPCS: 96365; 96366; A9270; J1100; J1200; J1459

== ENCOUNTER 2025-05-30 00:31 | Day surgery (SDC) | payer MEDICARE ==
[2025-05-30] VITALS (7 sets, daily range): BP systolic 117–143; BP diastolic 72–95
[2025-05-30] MEDS ORDERED: IMMUN GLOB G(IGG)/PRO/IGA 0-50 100 ML IV SCH (06:00)
[2025-05-30] MEDS ORDERED: Dexamethasone Sod Phos 10 MG/ML 1ML VIAL IV SCH (07:00)
== END 2025-05-30 11:53 | disposition home or self-care (01) ==
LOC: ATC 00:31
DX: G70.00 Myasthenia gravis without (acute) exacerbation (principal); I10 Essential (primary) hypertension; E78.5 Hyperlipidemia, unspecified; Z88.0 Allergy status to penicillin; Z79.899 Other long term (current) drug therapy
CPT/HCPCS: 96413; 96415; A9270; J1100; J1459

== ENCOUNTER 2025-06-05 00:29 | Day surgery (SDC) | payer MEDICARE ==
[2025-06-05] VITALS (11 sets, daily range): BP systolic 91–128; BP diastolic 62–87
[~2025-06-05 00:29] MED LIST changes: +IMMUN GLOB G(IGG)/PRO/IGA 0-50 100 ML IV SCH
[2025-06-05] MEDS ORDERED: Dexamethasone Sodium Phosphate 4 MG/ML 5ML VIAL IV SCH (07:20)
[2025-06-05] MEDS ORDERED: Dexamethasone Sod Phos 10 MG/ML 1ML VIAL IV SCH (07:40)
== END 2025-06-05 11:33 | disposition home or self-care (01) ==
LOC: ATC 00:29
DX: G70.00 Myasthenia gravis without (acute) exacerbation (principal); I10 Essential (primary) hypertension; E78.5 Hyperlipidemia, unspecified; Z88.0 Allergy status to penicillin; Z79.899 Other long term (current) drug therapy
CPT/HCPCS: 96365; 96366; 96375; 96413; A9270; J1100; J1459

== ENCOUNTER 2025-06-19 02:28 | Day surgery (SDC) | payer MEDICARE ==
[2025-06-19] VITALS (7 sets, daily range): BP systolic 116–143; BP diastolic 72–84
[~2025-06-19 02:28] MED LIST changes: -IMMUN GLOB G(IGG)/PRO/IGA 0-50 100 ML IV SCH
[2025-06-19] MEDS ORDERED: IMMUN GLOB G(IGG)/PRO/IGA 0-50 100 ML IV SCH (06:00)
[2025-06-19] MEDS ORDERED: Dexamethasone Sod Phos 10 MG/ML 1ML VIAL IV PRN (07:00)
[2025-06-19] MEDS ORDERED: diphenhydrAMINE HCl 12.5 MG/5 ML 5MLUDC (Alcohol/Dye Free) PO PRN (07:00)
== END 2025-06-19 17:58 | disposition home or self-care (01) ==
LOC: ATC 02:28
DX: G70.00 Myasthenia gravis without (acute) exacerbation (principal); J44.9 Chronic obstructive pulmonary disease, unspecified; I10 Essential (primary) hypertension; E78.5 Hyperlipidemia, unspecified; K58.9 Irritable bowel syndrome, unspecified; Z88.0 Allergy status to penicillin; Z79.899 Other long term (current) drug therapy
CPT/HCPCS: 96365; 96366; A9270; J1100; J1459

== ENCOUNTER 2025-06-27 02:47 | Day surgery (SDC) | payer MEDICARE ==
[2025-06-27] VITALS (9 sets, daily range): BP systolic 106–152; BP diastolic 62–86
[2025-06-27] MEDS ORDERED: IMMUN GLOB G(IGG)/PRO/IGA 0-50 100 ML IV SCH (06:00)
[2025-06-27] MEDS ORDERED: Dexamethasone Sod Phos 10 MG/ML 1ML VIAL IV SCH (11:00)
== END 2025-06-27 18:01 | disposition home or self-care (01) ==
LOC: ATC 02:47
DX: G70.00 Myasthenia gravis without (acute) exacerbation (principal); I10 Essential (primary) hypertension; E78.5 Hyperlipidemia, unspecified; Z88.0 Allergy status to penicillin
CPT/HCPCS: 96365; 96366; A9270; J1100; J1459

== ENCOUNTER 2025-07-03 00:41 | Day surgery (SDC) | payer MEDICARE ==
[2025-07-03] VITALS (10 sets, daily range): BP systolic 95–130; BP diastolic 59–76
[~2025-07-03 00:41] MED LIST changes: +IMMUN GLOB G(IGG)/PRO/IGA 0-50 100 ML IV SCH
[2025-07-03] MEDS ORDERED: Dexamethasone Sod Phos 10 MG/ML 1ML VIAL IV SCH (07:00)
== END 2025-07-03 17:51 | disposition home or self-care (01) ==
LOC: ATC 00:41
DX: G70.00 Myasthenia gravis without (acute) exacerbation (principal); I10 Essential (primary) hypertension; E78.5 Hyperlipidemia, unspecified; J44.9 Chronic obstructive pulmonary disease, unspecified; Z88.0 Allergy status to penicillin
CPT/HCPCS: 96365; 96366; A9270; J1100; J1459

== ENCOUNTER 2025-07-11 13:23 | Day surgery (SDC) | payer MEDICARE ==
[~2025-07-11 13:23] MED LIST changes: +Dexamethasone Sod Phos 10 MG/ML 1ML VIAL IV SCH; +Dexamethasone Sodium Phosphate 4 MG/ML 5ML VIAL IV SCH
[2025-07-11 13:30] VITALS: BP 116/74
[2025-07-11 14:16] VITALS: BP 119/106
[2025-07-11 14:48] VITALS: BP 115/68
[2025-07-11 15:05] VITALS: BP 120/83
[2025-07-11 16:47] VITALS: BP 131/82
== END 2025-07-11 17:37 | disposition home or self-care (01) ==
LOC: ATC 13:23
DX: G70.00 Myasthenia gravis without (acute) exacerbation (principal); I10 Essential (primary) hypertension; E78.5 Hyperlipidemia, unspecified; Z88.0 Allergy status to penicillin
CPT/HCPCS: 96365; 96366; A9270; J1100; J1459

== ENCOUNTER 2025-07-17 02:40 | Day surgery (SDC) | payer MEDICARE ==
[2025-07-17] VITALS (8 sets, daily range): BP systolic 107–128; BP diastolic 67–82
[~2025-07-17 02:40] MED LIST changes: -Dexamethasone Sod Phos 10 MG/ML 1ML VIAL IV SCH; -Dexamethasone Sodium Phosphate 4 MG/ML 5ML VIAL IV SCH; -IMMUN GLOB G(IGG)/PRO/IGA 0-50 100 ML IV SCH
[2025-07-17] MEDS ORDERED: Dexamethasone Sod Phos 10 MG/ML 1ML VIAL IV SCH (06:00)
[2025-07-17] MEDS ORDERED: IMMUN GLOB G(IGG)/PRO/IGA 0-50 100 ML IV SCH (13:20)
== END 2025-07-17 17:29 | disposition home or self-care (01) ==
LOC: ATC 02:40
DX: G70.00 Myasthenia gravis without (acute) exacerbation (principal); J44.9 Chronic obstructive pulmonary disease, unspecified; I10 Essential (primary) hypertension; E78.5 Hyperlipidemia, unspecified; Z79.899 Other long term (current) drug therapy; Z88.0 Allergy status to penicillin
CPT/HCPCS: 96365; 96366; A9270; J1100; J1459